=== PATIENT | female | born 1990 | race Caucasian/White ===

== ENCOUNTER 2020-08-06 15:52 | Outpatient (CLI) | payer OTHER, SELFPAY ==
--- NOTE | ~2020-08-06 | US_ITS ---
EXAMINATION: US abdomen complete EXAM DATE: 08/06/2020 16:36 INDICATION: Right upper quadrant pain, hepatomegaly. TECHNIQUE: Multiple grayscale and Doppler images of the complete abdomen were obtained (by a technolo gist who performed the scan) and subsequently reviewed. There is no prior study for comparison. FINDINGS: The abdominal aorta is normal in caliber. Visualized portion IVC is patent. The pancreatic head a nd body are normal in appearance. The pancreatic tail is not visualized. The liver has normal echogenicity and contour. Cystic centrally located liver lesion (caudate?) abut ting the IVC, could be spherical with nodule of echogenic material or soft tissue inside, or could be crescent-shaped. This measures 2.2 x 2.4 x 1.4 cm. There is no evidence of intrahepatic biliary duct dilation. Portal venous flow was seen in the hepatopedal, normal direction and has normal Doppler w aveform. Common bile duct measures 3 mm, which is normal. The gallbladder wall is normal in thickness, with ex pected amount of distention. No sonographic evidence of pericholecystic fluid. There is no cholelit hiases. Technologist performing exam reports patient did not demonstrate sonographic Caraballo's sign. Please note that this sign is less reliable in patients who have received pain medication. Right kidney: There is normal contour and echogenicity. It measures 9.1 x 5.4 x 4.0 centimeters. T here are no focal renal lesions identified. There is no hydronephrosis. Left kidney: There is normal contour and echogenicity. It measures 10.5 x 4.9 x 4.1 centimeters. T here are no focal renal lesions identified. There is no hydronephrosis. The spleen measures 12 centimeters and is morphologically normal. IMPRESSION: Nonspecific 2 cm liver cystic region with possible solid component. Indeterminate imaging features. Recommend abdomen MRI without and with contrast. Reviewed, dictated and finalized at location A. IMPRESSION: Nonspecific 2 cm liver cystic region with possible solid component. Indeterminate imaging features. Recommend abdomen MRI without and with contras t.
== END 2020-08-06 15:53 | disposition home or self-care (01) ==
PROVIDERS: PCP Nurse Practitioner Family; Visit Provider Nurse Practitioner Family
DX: R16.0 Hepatomegaly, not elsewhere classified (principal)
CPT/HCPCS: 76700

== ENCOUNTER → 2020-10-15 02:07 | Outpatient (CLI) | payer OTHER, SELFPAY ==
[2020-10-17 12:53] LABS: SARS-CoV-2 RNA PCR Negative
== END ==
PROVIDERS: PCP Nurse Practitioner Family; Visit Provider Internal Medicine Gastroenterology
DX: Z01.812 Encounter for preprocedural laboratory examination (principal); Z20.822 Contact with and (suspected) exposure to COVID-19
CPT/HCPCS: C9803; U0003; U0005

== ENCOUNTER 2020-10-18 01:37 | Day surgery (SDC) | payer OTHER, SELFPAY ==
[2020-10-08 14:19] VITALS: BMI 32.1
[2020-10-18 07:58] VITALS: BP 145/97; PULSE 64; RESP 20; TEMP 36.1; O2SAT 100
[2020-10-18] MEDS: LACTATED RINGERS 1,000 ML 150 ML IV CONT (08:08)
--- NOTE | 2020-10-18 08:49 | WPDANESEPPF ---
Anes - Initial Pre Proc Eval Procedure: Operation Date: 10/18/20 09:00 Proposed Procedures p Colonoscopy - Myles Bourgeois MD Date/Time: 10/18/20 08:49 Surgeon: Myles Bourgeois MD Pre Op Diagnosis: abdominal pain Patient Data Age: 30 Gender: F Height: 5 ft 1 in Weight: 76 kg Last Vital Signs Temp 97.0 F L 10/18/20 07:58 Pulse 64 10/18/20 07:58 Resp 20 10/18/20 07:58 BP 145/97 H 10/18/20 07:58 Pulse Ox 100 10/18/20 07:58 Allergies Allergy/AdvReac Type Severity Reaction Status Date / Time clavulanic acid Allergy Unknown Unknown Verified 10/18/20 07:52 Home Medications Medication Instructions Recorded Confirmed Type labetalol 200 mg tablet 200 mg PO TID tablet 09/18/20 10/08/20 History albuterol sulfate 2 puff INHALATION PRN PRN 10/08/20 10/08/20 History amlodipine 2.5 mg PO DAILY 10/08/20 10/08/20 History Patient hx anesthesia problems: none Family hx anesthesia problems: none [facility] Past Medical History Medical History (Updated 09/18/20 @ 13:27 by DELL WaddellC) HTN (hypertension) Liver cyst Obese abdomen Tobacco abuse Social History Social History (Updated 09/18/20 @ 09:58 by Dariana Gutierres CMA) Smoking packs per day: 0.25 Smoking cigarettes per day: 5.0 Years smoked: 5 Smoking pack-years: 1.25 Smoking status: Current some day smoker Tobacco type: cigarettes Additional smoking assessment comments: RARELY SMOKES , DOES VAPES DAILY Alcohol intake: never Substance use: never Substance use type: does not use Living arrangements: with family Gender identity (if verbalized by the patient): Female Spiritual care concerns: No Anes - Eval Final PreProcedure Day of Procedure 10/18/20 08:49 Patient weight: overweight Heart: regular rate and rhythm Lungs: clear to auscultation Airway: Mallampati scale class II Neurological: alert and oriented Last oral intake: >/= 8 hours ASA classification: II Emergent: no Anesthetic plan: proceed Anesthesia type and monitoring: general GIVS and standard monitoring Informed Consent: The patient's anesthetic plan and its attendant risks and benefits were discussed with the patient/family/POA. Questions were solicited and answers provided to the satisfaction of the patient/family/POA.
--- NOTE | 2020-10-18 08:57 | PM.HPGS ---
History of Present Illness History of Present Illness Consent: Risks, benefits, and alternatives have been discussed and questions answered. Patient agrees to proceed with procedure. Chief complaint: abdominal pain Narrative: Krystina Palmer is a 30 year old female Who has had a change in bowel habits. Besides having irregularity she also has abdominal pain. The pain is a transverse pain usually sharp across the waistline. It will also extended at times into the back > It may last for 5 minutes for up to an hour or 2. This began about 2 months ago. It occurs once or twice a day on the average Review of Systems Review of Systems: All systems reviewed & are unremarkable except as noted in HPI and below PMFSH Past Medical History Medical History HTN (hypertension) Liver cyst Obese abdomen Tobacco abuse Social History Social History Smoking packs per day: 0.25 Smoking cigarettes per day: 5.0 Years smoked: 5 Smoking pack-years: 1.25 Smoking status: Current some day smoker Tobacco type: cigarettes Additional smoking assessment comments: RARELY SMOKES , DOES VAPES DAILY Alcohol intake: never Substance use: never Substance use type: does not use Living arrangements: with family Gender identity (if verbalized by the patient): Female Spiritual care concerns: No Meds Home Medications and Allergies Home Medications Medication Instructions Recorded Confirmed Type labetalol 200 mg tablet 200 mg PO TID tablet 09/18/20 10/08/20 History albuterol sulfate 2 puff INHALATION PRN PRN 10/08/20 10/08/20 History amlodipine 2.5 mg PO DAILY 10/08/20 10/08/20 History Allergies Allergy/AdvReac Type Severity Reaction Status Date / Time clavulanic acid Allergy Unknown Unknown Verified 10/18/20 07:52 Vital Signs Vital Signs - 24 hr 10/18/20 07:58 Temperature 36.1 C L Pulse Rate 64 Respiratory Rate 20 Blood Pressure 145/97 H Pulse Oximetry 100 Exam Resp: Auscultation: clear to auscultation bilaterally Cardio: Rate: regular rate Rhythm: regular rhythm GI: GI Palp: Yes Soft to palpation and No Tenderness to palpation present (GI) Assessment and Plan Assessment and plan (1) Change in bowel habits: Code(s): R19.4 - Change in bowel habit Status: Acute Assessment and Plan: Colonoscopy with possible biopsy or polypectomy or cautery or injection of substances.
[2020-10-18 09:15] VITALS: BP 99/62; PULSE 64; RESP 15; O2SAT 99
[2020-10-18 09:25] VITALS: BP 104/71; PULSE 65; RESP 23; O2SAT 99
[2020-10-18 09:35] VITALS: BP 113/70; PULSE 63; RESP 15; O2SAT 99
== END 2020-10-18 09:55 | disposition home or self-care (01) ==
PROVIDERS: PCP Nurse Practitioner Family; Visit Provider Internal Medicine Gastroenterology
PROC: 0DJD8ZZ Inspection of Lower Intestinal Tract, Via Natural or Artificial Opening Endoscopic (ICD-10-PCS; CPT 45378; principal; 2020-10-18 09:00)
DX: R19.4 Change in bowel habit (principal); R10.9 Unspecified abdominal pain; K62.1 Rectal polyp; I10 Essential (primary) hypertension; K76.89 Other specified diseases of liver; F17.210 Nicotine dependence, cigarettes, uncomplicated
CPT/HCPCS: 45385; 88305; J2704; J7120

== ENCOUNTER 2020-11-08 10:18 | Outpatient (CLI) | payer OTHER, SELFPAY ==
--- NOTE | ~2020-11-08 | MR_ITS ---
EXAMINATION: MR abdomen wo/w con DATE: 11/08/2020 11:59 INDICATION: Liver cyst TECHNIQUE: Magnetic resonance imaging (MRI) of the abdomen was performed without and with 15 mL Multi muna intravenous contrast. Sequences included coronal T2-weighted SS-FSE, coronal and axial FS 2D-F IESTA, axial STIR FSE, axial T2-weighted SS-FSE, axial T2-weighted FS SS-FSE, axial diffusion-weighte d SE, axial dual-echo T1-weighted FSPGR, and axial and coronal T1-weighted LAVA. Postcontrast axial T 1-weighted LAVA images were obtained in a time course. Postcontrast coronal T1-weighted LAVA images w ere obtained. COMPARISON: Right upper quadrant ultrasound dated 08/06/2020 FINDINGS: Heart size is normal. No pericardial or pleural effusion. There is a 2.0 x 1.4 cm T2 hyperintense non enhancing cyst in the left hepatic lobe along the anterior margin of the inferior vena cava which cor responds in size and location to the lesion identified on prior ultrasound. There is some heterogenei ty to the high T2 signal likely representing some internal debris which could account for the nodular hypoechoic region within the lesion on the prior ultrasound. There is however no associated enhancem ent to suggest soft tissue component/neoplasm. Liver is otherwise normal. Gallbladder, spleen, pancre as, bilateral adrenal glands and kidneys are normal. Bowels are unremarkable with no obstruction. Rakesh dder, uterus and bilateral adnexa are unremarkable on the coronal images. No pathologically enlarged abdominal or pelvic lymphadenopathy. Metallic magnetic field artifact of indeterminate etiology cent ered in the region of the rectum and coccyx which obscures portions of the posterior inferior pelvis. IMPRESSION: 1. The lesion of concern corresponds to a 2.0 x 1.4 cm complex cyst in the left hepatic lobe with no enhancing soft tissue component to suggest neoplasm. Reviewed, dictated and finalized at location A.
[2020-11-08 11:24] LABS: Estimated Glomerular Filt Rate > 60
== END 2020-11-08 10:19 | disposition home or self-care (01) ==
PROVIDERS: PCP Nurse Practitioner Family; Visit Provider Nurse Practitioner Family
DX: K76.89 Other specified diseases of liver (principal)
CPT/HCPCS: 74183; A9577

== ENCOUNTER 2021-05-14 10:16 | Outpatient (CLI) | payer OTHER, SELFPAY ==
[2021-05-17 00:59] LABS: CA-125 31 U/mL (<35)
== END 2021-05-14 10:17 | disposition home or self-care (01) ==
LOC: ANHLAB 10:21
PROVIDERS: PCP Nurse Practitioner Family; Visit Provider Obstetrics & Gynecology
DX: N83.209 Unspecified ovarian cyst, unspecified side (principal)
CPT/HCPCS: 36415; 86304

== ENCOUNTER 2022-04-14 12:13 | Outpatient (CLI) | payer OTHER, SELFPAY ==
--- NOTE | 2022-04-14 | ECG_ITS ---
Measurements Intervals [place] Rate: 65 P: 31 MD: 168 QRS: 32 QRSD: 97 T: 27 QT: 397 QTc: 413 Interpretive Statements SINUS RHYTHM NONSPECIFIC T-WAVE ABNORMALITY- ANTERIOR LEADS BASELINE ARTIFACT- V4 BORDERLINE ECG NO PREVIOUS ECG AVAILABLE FOR COMPARISON Electronically Signed On 04-14-2022 13:11:19 ASSISTANT ART DIRECTOR by Lenard Alejo D.O.
[2022-04-14 12:59] LABS: Appearance Urine Clear (Clear); Bilirubin Urine Negative (Negative); Blood Urine Negative (Negative); Color Urine Yellow (Yellow); Glucose Urine UA Negative (Negative); Ketones Urine Negative (Negative); Leukocyte Esterase Ur 1+ LEU/UL (NEGATIVE); Nitrate Urine Negative (Negative); Protein Urine Negative (Negative); Urobilinogen Urine 0.2 mg/dL (<2.0); pH Urine 6.5 (5.0-9.0)
[2022-04-14 13:04] LABS: Creatinine Urine 135.7 mg/dL; Total Protein Urine Random 7 mg/dL; Ur Ttl Prot Creatinine Ratio 0.05 mg/mg (0-0.20)
[2022-04-14 13:13] LABS: Barbiturate Screen Urine Negative (Negative); Benzodiazepines Screen Urine Negative (Negative)
[2022-04-14 13:15] LABS: Amphetamine Screen Urine Negative (Negative); Cannabinoid Screen Urine Negative (Negative); Cocaine Screen Urine Negative (Negative); Methadone Screen Urine Negative (Negative); Opiate Screen Urine Negative (Negative); Phencyclidine Screen Urine Negative (Negative)
[2022-04-14 13:26] LABS: Bacteria Urine Trace /hpf; Mucus Urine Rare /lpf; Squamous Epithelial Cell Urine Few /hpf (Few)
[2022-04-14 13:39] LABS: Add Urine Microscopic? YES
[2022-04-14 14:18] LABS: Basophils Percent Auto 0.2 % (0.2-1.2); Eosinophils Absolute Auto 0.1 K/mm3 (0-0.3); Eosinophils Percent Auto 1.4 % (0-4.4); Hematocrit 34.3 % (37.0-47.0); Hemoglobin 11.7 g/dL (12.0-15.0); Immature Granulocyte Absolute 0.04 K/mm3 (0.00-0.031); Immature Granulocyte Percent A 0.5 % (0-0.5); Lymphocytes Absolute Auto 1.66 K/mm3 (0.9-3.2); Lymphocytes Percent Auto 18.7 % (18.3-44.2); Mean Corpuscular HGB Conc 34.1 g/dl (32-36); Mean Corpuscular Hemoglobin 29.8 pg (26-34); Mean Corpuscular Volume 87.3 fl (80-100); Mean Platelet Volume 10.9 fl (7.4-10.4); Monocytes Absolute Auto 0.5 K/mm3 (0.1-0.6); Monocytes Percent Auto 5.8 % (2.6-8.5); Neutrophils Absolute Auto 6.5 K/mm3 (1.3-6.7); Neutrophils Percent Auto 73.4 % (45.5-73.1); Platelet Count Result 200 k/mm3 (150-375); Red Blood Count 3.93 M/mm3 (4.2-5.4); Red Cell Distribution Width 12.5 % (11.5-14.5); White Blood Count 8.9 K/mm3 (4.5-10.0)
[2022-04-14 14:42] LABS: Alanine Aminotransferase 22 U/L (6-35); Albumin Level 4.3 g/dL (3.5-5.1); Alkaline Phosphatase 58 U/L (38-126); Anion Gap 9 mmol/L (8-16); Aspartate Amino Transferase 22 U/L (14-36); Bilirubin,Total 0.3 mg/dL (0.2-1.3); Blood Urea Nitrogen 10 mg/dL (7-17); Calcium 9.3 mg/dL (8.4-10.2); Carbon Dioxide 24 mmol/L (22-30); Chloride 105 mmol/L (98-107); Estimated Glomerular Filt Rate > 60; Glucose 99 mg/dL (65-110); Glucose 1 Hour PP 50gm Dose 99 mg/dL; Potassium 3.5 mmol/L (3.4-5.0); Sodium 138 mmol/L (137-145)
[2022-04-14 15:11] LABS: HIV 1/2 Ab P24 Ag Result Negative (Negative)
[2022-04-14 15:37] LABS: Rubella IgG Antibody 10.1 IU/ML
[2022-04-14 15:49] LABS: Hepatitis B Surface Anti Res Positive; Hepatitis C Virus Antibody Negative (Negative)
[2022-04-15 09:52] LABS: Hepatitis B Surface Antigen Negative (Negative)
[2022-04-15 14:47] LABS: Rapid Plasma Reagin Non-Reactive (NonReactive)
== END 2022-04-14 12:14 | disposition home or self-care (01) ==
LOC: ANHLAB 12:17
PROVIDERS: PCP Nurse Practitioner Family; Visit Provider Obstetrics & Gynecology Gynecologic Oncology
DX: O10.919 Unspecified pre-existing hypertension complicating pregnancy, unspecified trimester (principal); Z3A.00 Weeks of gestation of pregnancy not specified; R94.31 Abnormal electrocardiogram [ECG] [EKG]
CPT/HCPCS: 36415; 80053; 80307; 81001; 82570; 82947; 84156; 85025; 86592; 86703; 86706; 86762; 86803; 86850; 86880; 86900; 86901; 86902; 87086; 87340; 93005; G0432

== ENCOUNTER 2022-04-15 09:46 | Outpatient (CLI) | payer OTHER, SELFPAY ==
[2022-04-16 12:23] LABS: Total Protein Urine Random 7 mg/dL
[2022-04-16 12:42] LABS: Total Protein Urine 24 Hr 70 mg/24hr (28-141); Total Volume 24 Hour Urine 1000 ml
== END 2022-04-15 09:47 | disposition home or self-care (01) ==
LOC: ANHLAB 05-02 06:41
PROVIDERS: PCP Nurse Practitioner Family
DX: O10.919 Unspecified pre-existing hypertension complicating pregnancy, unspecified trimester (principal)
CPT/HCPCS: 81050; 84156

== ENCOUNTER 2024-10-12 13:40 | Emergency (ER) | payer OTHER, SELFPAY ==
[2024-10-12] VITALS (7 sets, daily range): BP systolic 163–196; BP diastolic 110–129; PULSE 56–70; RESP 14–18; TEMP 36.8–36.9; O2SAT 98–100
--- NOTE | ~2024-10-12 | XR_ITS ---
CHEST RADIOGRAPH, PA AND LATERAL CLINICAL HISTORY: lightheaded . COMPARISON: 02/09/2017 TECHNIQUE: PA and lateral views of the chest. FINDINGS The cardiomediastinal silhouette is unremarkable. The lungs are clear. IMPRESSION: No focal infiltrate or effusion. Reviewed, dictated and finalized at location A.
--- OUTSIDE RECORDS SUMMARY | 2024-10-12 13:47 | XMS_ITS | Clinical Summary ---
Author Organization [facility] [address] [facility] [address] Address [address] [place] [address] Care Team Providers Care Electronic Controls Repairer Supervisor Name Role Phone Lizandro Perry MD Primary Care Provider Allergies Active Allergy Reactions Criticality Noted Date Comments Amoxicillin-Pot Clavulanate Diarrhea High 03/23/20 15 Medications albuterol HFA (PROVENTIL HFA,VENTOLIN HFA,PROAIR HFA) 90 mcg/actuation inhaler INHALE 2 PUFFS INTO THE LUNGS EVERY 6 HOURS NEEDED FOR WHEEZE 2 Active fluticasone propionate (FLONASE) 50 mcg/actuation nasal spray Administer 2 sprays into each nostril daily 1 each 3 Active Additional Information Patient taking differently:2 spray each nostrilAs needed, Reported on 07/13/2023 labetaloL (NORMODYNE,TRAND ATE) 200 mg tabletIndication s:Essential hypertension Take 1 tablet (200 mg total) by mouth 2 (two) times a day 60 tablet 3 Active NIFEdipine CC 30 mg 24 hr tabletIndication s:Essential hypertension Take 1 tablet (30 mg total) by mouth daily 30 tablet 11 3 Active Additional Information Patient not taking.Reported on 07/13/2023 amLODIPine (NORVASC) 5 mg tablet Take 1 tablet (5 mg total) by mouth daily 30 tablet 5 11/10/19 25 Active Active Problems Problem Noted Date Diagnosed Date Migraine 10/10/2024 New daily persistent headache 10/10/2024 Blurred vision 10/10/2024 Cyst of left ovary 02/03/2024 Cyst of right ovary 02/03/2024 Generalized anxiety disorder 08/25/2023 Noncompliance with treatment 01/01/2023 Hypertension affecting , antepartum Hypertension 09/16/2022 Dizziness 06/23/2022 Overview (08/25/2022): Patient reports episodes of dizziness/feeling lightheaded at night. States her Bps have been normal during this time. Her primary OB recently collin a CBC, CMP and TSH that were all normal (reviewed during visit). Had follow up with cardiology and 24 hr holter that showed no arrhythmias and NSR during symptomatic events. TTE also normal (Mild MV, TV, PV regurgitation). 3/2- episodes decreased in frequency and severity. 4/3- episodes have continued to decrease in frequency and severity, have not interfered with activity Reviewed recommendations for regular snacking, good hydration and compression socks. Plan: - recommend good hydration and compression socks - fall precautions reviewed Asthma during 05/12/2022 Overview (08/25/2022): Previously counseled Current Regimen: Rare albuterol use Continue to monitor symptoms 4/3: reports increased use in setting of URI, denies wheezing, lungs clear to auscultation bilaterally Family history of ischemic h eart disease and other diseases of the circulatory system 05/12/2022 Marijuana use during 05/12/2022 Overview (06/19/2022): Previously counseled and encouraged cessation Chronic hypertension with superimposed preeclamp nate 05/07/2022 Overview (10/07/2022): Sees cardiology, records available in [facility]where. Has had a secondary HTN workup that was negative. 04/14 nml baseline HELLP labs, UPC: 0.05. Previously counseled Current regimen: 10/07/2022- Labetalol 200 BID. Plan to increase to 200 tid Was last admitted 09/26-09/29 at [facility] for headaches and worsening hypertension. Was diagnosed with superimposed preeclampsia with UPC 0.35. Severe features ruled out and plan was made for 37wk delivery at that time. -Given persistent headache today for now 2 days, recommended that she present to triage at [facility] (her planned delivery hospital). Would recommend delivery if headache fails to resolve. Spoke with Dr. Warren's nurse. Plan: [x] ASA at 12 weeks [x] Baseline labs (CBC, CMP, UPC) nmp, UP:C 0.05 [x] Secondary HTN work-up (if resistant to tx, dx < 30 years) [x] EKG/Echo (if dx>4 years or >30) - recommend weekly logs to [facility] for review, BP cuff validated - Serial growth ultrasound starting at 24 weeks - Twice weekly testing at 32 weeks, discussed 4/3 planning to do with primary Assessment & Plan (06/23/2022 10:53 AM SHIP RUNNER): BP log reviewed with mild range Bps. Encouraged compliance with labetalol 200 mg BID. BP parameters to hold and hypotension precautions reviewed. Strongly encouraged weekly logs to [facility] for review to ensure proper doses of meds. MFM RN to room to discuss weekly logs and review contact info. Rh negative state in antepartum period, third tr imester 05/07/2022 Overview (09/08/2022): [x] Rhogam at 28 weeks- received 08/29/22 (scanned under media) History of pre-eclampsia in prior , currently , first trimester 05/07/2022 Overview (06/19/2022): Germania states that it was unclear if she had pre-eclampsia in her last as they did not have a baseline urine protein. She has generally been treated as though she had pre-eclampsia. Previously counseled Plan: - Baseline PIH labs: WNL - Low dose ASA Supervision of high-risk , third trimes ter 05/07/2022 Overview (10/07/2022): [x] Co-management [x] Blue Team Referring Provider: Cristine Warren [phone] [] or Medicare Insurance [x] Dating Criteria: [place] 03/24/22 with KEIRA 11/09/21 [x] Labs: Rh [O-], Ab [positive, rhogam 03/04/22], Rubella [immune], HIV [negative], HepBSAg [negative], RPR [non-reactive], Hep C [negative], Varicella [not done], GC/CT [negative/negative] [] Genetic Screening: [x] CBC/Hgb 11.7/34.3/plt 200 [x] UCx: 04/14/22 no growth [x] Pap: 10/06/20 NILM [x] LD ASA (if indicated) starting at 12 weeks: [] EPDS [ ]; PNBHS referral (if indicated) 2nd Tri Labs: [x] Anatomy ultrasound: complete and wnl [] CBC/Ferritin/1hr gtt at 24-28wks:planning to obtain with primary OB [] Flu Shot (Jan-Apr): [x] Tdap (27-36wks): Obtained at primary OB [] COVID Vaccine: [x] Rhogam at 28 wks (if Rh neg): received 03/04/22, received 08/29/22 with primary (scanned under media) 3rd Tri Labs: [x] CBC/HIV/RPR: completed 09/28 [x] GBS: negative 09/17 [x] testing: scheduled with primary Counseling [] MOD: [x] Place of delivery: Planning to delivery with primary OB [] MOC: [] Method of feeding: [] Special Police Officer: [] PP Depression Discussed: Snoring 01/16/2022 Uncomplicated asthma 04/23/2021 Nontoxic goiter, unspecified 01/30/2021 History of Left atrial enlargement 12/31/2020 Overview (07/24/2022): Echocardiogram 02/10/2017 EF 70%, mild concentric LVH, hyperdynamic LV function, diastolic dysfunction, no regional wall motion abnormalities, moderate left atrial enlargement, mild AL- copy scanned into Media Echo 07/22/22: Left atrium is normal in size. Normal LV systolic function. No focal wall motion abnormalities. Normal LV size and wall thickness. Normal LV diastolic function. LVEF 63 %. Global Longitudinal Strain is normal. Essential hypertension 04/10/2017 Tobacco dependence syndrome 03/23/2015 Overview (05/12/2022): Patient quit smoking! She was congratulated. Herpes genitalis 04/30/2012 Resolved Problems Problem Noted Date Diagnosed Date Resolved Date Hypertension affecting pregn hossein in third trimester 09/26/2022 01/12/2023 33 weeks gestation of 07/28/2022 01/12/2023 Dietary counseling 10/09/2020 Breast feeding status of mother 11/30/2019 05/12/2022 Cyclical vomiting with nausea 07/03/2017 05/12/2022 Encounter for smoking cessation counseling 07/03/2017 05/12/2022 Lipid screening 07/03/2017 05/12/2022 Hypertensive urgency 04/10/2017 018 Abnormality of urination 03/23/2015 Overview (05/12/2022): per pt Chest pain 03/23/2015 05/12/2022 Headache 03/23/2015 05/12/2022 Plantar warts 12/28/2012 05/12/2022 Acquired talipes equinus 11/17/2012 Capsulitis 11/04/2012 05/12/2022 Encounters Date Type Department Care Team Description 10/10/2024 3:26 AM CDT - 10/10/2024 11:39 AM CDT Emergency [facility] [address] [place] [address] Jose C Morales MD Zanaboni, Allison Janine, MD Blurred vision (Primary Dx); Secondary hypertension Discharge Disposition: Discharge to home or self care 10/10/2024 Telephone [facility] Ophthalmology [address] [place] [phone] Ky Townsend MD 10/10/2024 Ophth Exam [facility] Ophthalmology [address] [place] [phone] Ky Townsend MD 10/10/2024 Telephone [facility] Ophthalmology [address] [place] [address] 1[address] [place] [phone] Ky Townsend MD from Last 3 Months Immunizations Immunization Administration Dates Next Due DTP 04/23/1993, 3,03/20/1992,01/09 DTaP 10/20/1996 DTaP, Unspecified 10/20/1996 H1N1 Inj 03/22/2009 HPV, Quadrivalent 06/30/2007,02/26/2007,12/22/19 07 HPV, Unspecified 06/30/2007,02/26/2007, 7 Hep B, Adolescent or Pediatric 02/21/1997,1996,09/15/1996 Hep B, Unspecified 02/21/1997,10/20/1996, 997 HiB 03/19/1993, 3,03/20/1992,01/09 Immune Globulin, IM 05/11/2018 Influenza, Quadrivalent, Spl it, Preservative Free, Intramuscular 04/30/2019 MMR 09/15/1996,03/19/1993 MMRV 09/15/1996,03/19/1993 Meningococcal ACWY, Unspecified 12/21/2006 Meningococcal C Conjugate 12/21/2006 OPV 09/15/1996, 3,03/20/1992,01/09 OPV, Unspecified 09/15/1996, 3,03/20/1992,01/09 Tdap 07/28/2019,12/21/2006 Surgical History Surgery Date Site/Laterality Comments DILATION AND CURETTAGE OF UTERUS TYMPANOSTOMY TUBE PLACEMENT Medical History Medical History Date Comments Hypertension Hypertensive urgency 04/10/2017 Pre-conception counseling 07/03/2017 Asthma Family History Medical History Relation Name Comments Heart disease Father Hypertension Father Hypertension Mother Relation Name Status Comments Father Alive Mother Alive Social History Tobacco Use Types Packs/Day Years Used Date Smoking Tobacco: Former Cigarettes Smokeless Tobacco: Never Tobacco Cessation:Counseling Given: Not Answered Alcohol Use Standard Drinks/Week Comments Yes 0 (1 standard drink = 0.6 oz pur e alcohol) rarely Social Connection and Isolat ion Panel [NHANES] Answer Date Recorded In a typical week, how many times do you talk on the phone with family, friends, or neighbors? More than three times a week 09/18/2022 How often do you get togethe r with friends or relatives? More than three times a week 09/18/2022 How often do you attend chur ch or orthodoxy services? Never 09/18/2022 Do you belong to any clubs o r organizations such as islam groups, unions, fraternal or athletic groups, or school groups? No 09/18/2022 How often do you attend meet ings of the clubs or organizations you belong to? Never 09/18/2022 Are you , , di vorced, , never , or living with a partner? 09/18/2022 AUDIT-C Answer Date Recorded Q1: How often do you have a drink containing alcohol? Never 09/17/2022 Q2: How many drinks containi ng alcohol do you have on a typical day when you are drinking? Patient does not drink Q3: How often do you have si x or more drinks on one occasion? Never 09/17/2022 Overall Financial Resource Strain (CARDIA) Answe r Date Recorded How hard is it for you to pa y for the very basics like food, housing, medical care, and heating? Not very hard 09/18/2022 Hunger Vital Sign Answer Date Recorded Within the past 12 months, y ou worried that your food would run out before you got the money to buy more. Never true 09/19/19 23 Within the past 12 months, t he food you bought just didn't last and you didn't have money to get more. Never true 09/18/2022 PRAPARE - Transportation Answer Date Re corded In the past 12 months, has l ack of transportation kept you from medical appointments or from getting medications? No 08/24 In the past 12 months, has l ack of transportation kept you from meetings, work, or from getting things needed for daily living? No 09/18/2022 Housing Stability Vital Sign Answer Brett e Recorded In the last 12 months, was t here a time when you were not able to pay the mortgage or rent on time? No 09/18/2022 In the last 12 months, how many places have you lived? 1 09/18/2022 In the last 12 months, was t here a time when you did not have a steady place to sleep or slept in a fpc (including now)? No 09/18/2022 Housing Stability Vital Sign Answer Brett e Recorded In the last 12 months, was t here a time when you were not able to pay the mortgage or rent on time? No 09/18/2022 Number of Times Moved in the Last Year Not on fi le 09/18/2022 Homeless in the Last Year Not on file 2022 Personal Safety Answer Date Recorded Have you ever been in or are you currently in a harmful physical or emotional relationship or is someone making you feel afraid or unsafe? Denies 10/10/2024 Comments Unknown Sex and Gender Information Value Date Recorded Sex Assigned at Not on file Legal Sex Female 12:28 PM CDT Gender Identity Not on file Sexual Orientation Not on file Obstetrics History Para Term AB IAB SAB Ectopic Multiple Livin g Live Births 4 1 1 2 1 1 1 1 Date Outcome GA Total Labor Labor/2nd/3rd Weight Sex Type Anes PTL Eden A1 A5 Name Clin 2016 SAB 7w0 d 2017 Ectopic 2019 Term 37w 3d 43h 50m 40h 47m/2h 56m/0h 07m 3.35 kg (7 lb 6.2 oz) M Vag-S pont Epidur al N Livin g 8 9 RENCH, BOY GERMANIA Ventura rd, MD Complications:None Delivery Location:[facility]) Last Filed Vital Signs Vital Sign Reading Time Taken Comments Blood Pressure 169/127 10/10/2024 10:25 AM CDT Pulse 65 10/10/2024 10:25 AM CDT Temperature 36.9 C (98.5 F) 10/10/2024 3:31 AM CDT Respiratory Rate 17 10/10/2024 10:25 AM CDT Oxygen Saturation 98% 10/10/2024 10:25 AM CDT Inhaled Oxygen Concentration - - Weight 79.4 kg (175 lb) 10/10/2024 3:31 AM CDT Height 154.9 cm (5' 1 ) 10/10/2024 3:31 AM CDT Body Mass Index 33.07 10/10/2024 3:31 AM CDT Plan of Treatment Health Maintenance Due Date Last Done Comments Cervical Cancer Screening 1991 Depression Screening 1991 Regular Well Visit/Exam 18-64 09/29/2009 Pneumococcal vaccine <65 (1 of 2 - PCV) 09/29/2010 Influenza Vaccine (Season Ended) 2025 04/30/20 19 DTaP/Tdap/Td Vaccine (8 - Td or Tdap) 07/27/2029 07/28/2019, 12/21/2006, 10/20/1996, Additional history exists Varicella Vaccines Completed 09/15/1996, 03/19/1993 Hepatitis B Screening Completed 02/21/1997 , 02/21/1997, 10/20/1996, Additional history exists HPV Vaccines Completed 06/30/2007, 10/2007, 02/26/2007, Additional history exists Hepatitis C Screening Completed 04/14/2022 Procedures Procedure Name Priority Date/Time Associated Diagnosis Comments TROPONIN I HIGH-SENSITIVITY 2-HOUR Timed 10/10/2024 6:32 AM CDT POCT RAPID HIV ANTIBODY COMMUNITY SCREENING-MANDI ELIGIBLE STAT 10/10/2024 6:23 AM CDT T4, FREE STAT 10/10/2024 4:16 AM CDT HEMOGLOBIN A1C STAT 10/10/2024 4:16 AM CDT EGFR STAT 10/10/2024 4:16 AM CDT DIFFERENTIAL AUTO STAT 10/10/2024 4:1 6 AM CDT CBC WITH AUTO DIFFERENTIAL STAT 10/10/2024 4:16 AM CDT TROPONIN I HIGH-SENSITIVITY SERIES (BASELINE, 2HR, 4HR, 6HR) STAT 10/10/2024 4:16 AM CDT TSH STAT 10/10/2024 4:16 AM CDT URINALYSIS AND REFLEX TO MICROSCOPIC STAT 10/10/2024 4:16 AM CDT COMPREHENSIVE METABOLIC PANEL STAT 10/10/2024 4:16 AM CDT POCT HCG, URINE Routine 10/10/2024 4:14 AM CDT ECG 12-LEAD Routine 10/10/2024 4:[address] OUTSIDE CONSULT Routine 10/10/2024 4:[address] OUTSIDE CONSULT Routine 10/10/2024 4:00 AM CDT HEPATITIS C ANTIBODY Routine 04/14/2022 from Last 3 Months or Most Recently Relevant to Health Maintenance Results * Troponin I high-sensitivity 2-hour (10/10/2024 6:32 AM CDT) Trop I hs <4 <=17 ng/L Comment: Interpretive Data For further hscTnI resources including the diagnostic algorithm and an aid in interpretation, copy and paste this link: [email or web address].testcatalog.org/show/[email or web address] Current Interpretive Data last revised 2019. Trop I hs delta 0 ng/L RAFAL CASTAÑEDA Trop I hs interp Insignificant [facility]ERNER [facility] Blood 10/10/2024 6:32 AM CDT 10/10/2024 6:47 AM CDT us Abbe Moncada MD LAB BLOOD ORDERABLES Final Res ult RAFAL CASTAÑEDA [facility] [place] [address] * POCT Rapid HIV Antibody Community Screening-Mandi Eligible (10/10/2024 6:23 AM CDT) Rapid HIV, POC Negative Negative Lot Number [id number] QC Control Line Acceptable Blood 10/10/2024 6:23 AM CDT us Jose C Morales MD POINT OF CARE TEST ORDERABLES Final Result * Troponin I high-sensitivity series (baseline, 2hr, 4hr, 6hr) (10/10/2024 4:16 AM CDT) Trop I hs <4 <=17 ng/L Comment: Interpretive Data For further hscTnI resources including the diagnostic algorithm and an aid in interpretation, copy and paste this link: https://bjhlab.testcatalog.org/show/hsTrop-[email or web address] Current Interpretive Data last revised 2019. Blood 10/10/2024 4:16 AM CDT 10/10/2024 4:27 AM CDT us Abbe Moncada MD LAB BLOOD ORDERABLES Final Res ult [facility] Department [place] [address] * eGFR (10/10/2024 4:16 AM CDT) eGFR 73 >=60 mL/min/1. 73 m2 Comment: Interpretive Data Reference Interval Normal >/= 90 mL/min/1.73m2 Mildly decreased* 60 - 89 mL/min/1.73m2 Mildly to moderately decreased 45 - 59 mL/min/1.73m2 Moderately to severely decreased 30 - 44 mL/min/1.73m2 Severely decreased 15 - 29 mL/min/1.73m2 Kidney Failure < 15 mL/min/1.73m2 *Relative to young adult level Estimated glomerular filtration rate is determined by the 2020 CKD-EPI equation recommended by the National Kidney Foundation (A Unifying Approach to GFR Estimation: Recommendations of the NKF-ASK Task Force on Reassessing the Inclusion of Race in Diagnosing Kidney Disease, JASN 2020). The CKD-EPI equation should not be used for patients with unstable renal function and has not been validated in children and those over 70. Current interpretive data was last reviewed 2021. Blood 10/10/2024 4:16 AM CDT 10/10/2024 4:27 AM CDT us Abbe Moncada MD LAB BLOOD ORDERABLES Final Res ult [facility] Department [place] [address] * Differential, auto (10/10/2024 4:16 AM CDT) Neutrophil abs 6.30 1.50 - 6.50 K/cumm Imm gran abs 0.03 0.00 - 0.10 K/cumm [facility] Lymphocyte abs 1.72 0.80 - 3.30 K/cumm [facility] Monocyte abs 0.38 0.20 - 0.80 K/cumm [facility] Eosinophil abs 0.06 0.00 - 0.50 K/cumm [facility] Basophil abs 0.02 0.00 - 0.10 K[facility]umm [facility] Neutrophil pct 74.0 % [facility] Comment: Interpretive Data Percent cell count reference ranges are not reported, since discordance with absolute values may lead to misinterpretation of CBC data. Current Interpretive Data was last revised on 2017. Imm gran pct 0.4 % [facility] Comment: Interpretive Data Percent cell count reference ranges are not reported, since discordance with absolute values may lead to misinterpretation of CBC data. Current Interpretive Data was last revised on 2017. Lymphocyte pct 20.2 % [facility] Comment: Interpretive Data Percent cell count reference ranges are not reported, since discordance with absolute values may lead to misinterpretation of CBC data. Current Interpretive Data was last revised on 2017. Monocyte pct 4.5 % [facility] Comment: Interpretive Data Percent cell count reference ranges are not reported, since discordance with absolute values may lead to misinterpretation of CBC data. Current Interpretive Data was last revised on 2017. Eosinophil pct 0.7 % [facility] Comment: Interpretive Data Percent cell count reference ranges are not reported, since discordance with absolute values may lead to misinterpretation of CBC data. Current Interpretive Data was last revised on 2017. Basophil pct 0.2 % [facility] Comment: Interpretive Data Percent cell count reference ranges are not reported, since discordance with absolute values may lead to misinterpretation of CBC data. Current Interpretive Data was last revised on 2017. Blood 10/10/2024 4:16 AM CDT 10/10/2024 4:27 AM CDT Abbe Moncada MD LAB BLOOD ORDERABLES Final Res ult [facility] Department [place] [address] * Urinalysis reflex to microscopic (10/10/2024 4:16 AM CDT) Color, ur Straw Yellow Clarity, ur Clear Clear [facility] Specific gravity, ur 1.013 1.003 - 1.030 [facility] pH, urine 7.0 [facility] Comment: Interpretive Data U rine pH is affected by diet, medications, systemic acid-base disturbances, and renal tubular function. pH may affect urinary stone formation. For example, urine pH below 6.0 may help reduce the tendency for calcium phosphate stones and pH greater than 6.0 may reduce the tendency for uric acid stone formation. Source: [facility] Current Interpretive Data was last revised on 2017 Protein, ur ql Negative Negative [facility] Glucose, ur ql Negative Negative [facility] Ketones, ur Negative Negative [facility] Bilirubin, ur Negative Negative [facility] Blood, ur Negative Negative [facility] Urobilinogen, ur <2.0 <2.0 mg/dL [facility] Nitrite, ur Negative Negative [facility] Leukocyte esterase, ur Negative Negative [facility] UA reflex comment Reflex conditions for microscopic UA not met. [facility] Urine 10/10/2024 4:16 AM CDT 10/10/2024 4:21 AM CDT Abbe Moncada MD LAB URINE ORDERABLES Final Res ult Performing Organization Address [facility] Co de Phone Number [facility] Department [place] [address] * (ABNORMAL) CBC with auto differential (10/10/2024 4:16 AM CDT) WBC 8.51 3.80 - 9.90 K/cumm Hgb 12.0 11.9 - 15.5 g/dL [facility] Hct 35.0(L) 35.6 - 45.5 % [facility] Plt 246 150 - 400 K/cumm [facility] MPV 11.3 9.1 - 12.3 fL [facility] RBC 4.23 3.90 - 5.20 M/cumm [facility] MCV 82.7 81.3 - 96.4 fL [facility] MCH 28.4 27.1 - 33.3 pg [facility] MCHC 34.3 32.3 - 35.7 g/dL [facility] RDW CV 13.1 11.1 - 14.9 % [facility] RDW SD 39.4 35.7 - 48.1 fL [facility] NRBC abs 0.00 0.00 - 0.01 K/cumm [facility] Blood 10/10/2024 4:16 AM CDT 10/10/2024 4:27 AM CDT us Abbe Moncada MD LAB BLOOD ORDERABLES Final Res ult Performing Organization Address City/[facility]/ZIP Co de Phone Number [facility] Department [place] [address] * (ABNORMAL) TSH (10/10/2024 4:16 AM CDT) Pathologist [facility] Thyroid Stimulating Hormone 16.20(H) 0.30 - 4.20 mcIUnit/mL Blood Venous blood specimen / Unknown 10/10/2024 4:16 AM CDT 10/10/2024 4:27 AM CDT us Abbas Ali Moncada MD LAB BLOOD ORDERABLES Final Res ult [facility] [place] [address] * T4, free (10/10/2024 4:16 AM CDT) Pathologist [facility] Free T4 1.57 0.90 - 1.70 ng/dL Blood 10/10/2024 4:16 AM CDT 10/10/2024 4:27 AM CDT Jose C Rodriguez MD LAB BLOOD ORDERABLES Final Result Performing Organization Address [facility] de Phone Number [facility] [place] [address] * Hemoglobin A1c (10/10/2024 4:16 AM CDT) [facility] Hgb A1C 4.9 4.0 - 5.6 % Estimated Average Glucose 94 mg/dL [facility] Comment: The ADA recommends reporting an estimated Average Glucose (eAG) with all Hemoglobin A1c results using the equation derived from a study of 507 normal and diabetic adults. Minority populations were underrepresented and children were not included. (Diabetes Care 2020; 43(S1): S66-S76). The eAG is not equivalent to a fasting glucose. Blood 10/10/2024 4:16 AM CDT 10/10/2024 4:32 AM CDT Jose C Rodriguez MD LAB BLOOD ORDERABLES Final Result Performing Organization Address [facility]/[place] [address] * Comprehensive metabolic panel (10/10/2024 4:16 AM CDT) [facility] Sodium 145 135 - 145 mmol/L Potassium, pl 4.3 3.3 - 4.9 mmol/L [facility] Chloride 108 97 - 110 mmol/L [facility] CO2 24 22 - 32 mmol/L [facility] Anion gap 13 2 - 15 mmol/L [facility] BUN 16 6 - 25 mg/dL [facility] Creatinine 1.04 0.60 - 1.10 mg/dL [facility] Glucose 103 70 - 199 mg/dL [facility] Comment: Interpretive Data Fasting glucose >/= 126 mg/dl is diagnostic for diabetes. Fasting is defined as no caloric intake for at least 8 hours. Fasting glucose between 100 mg/dl to 125 mg/dl is diagnostic of prediabetes. In a patient with classic symptoms of hyperglycemia or hyperglycemic crisis, a random glucose >/= 200 mg/dl is diagnostic for diabetes. In the absence of unequivocal hyperglycemia, results should be confirmed by repeat testing. The classification and Diagnosis of Diabetes Diabetes Care 202; 46: S19-S40. Current interpretive data was last revised 2022. Calcium 9.9 8.5 - 10.3 mg/dL [facility] Bilirubin, total 0.3 0.1 - 1.2 mg/dL [facility] Protein, pl 8.0 6.5 - 8.5 g/dL [facility] Albumin 4.8 3.5 - 5.0 g/dL [facility] Alk phos 86 40 - 130 Units/L [facility] ALT 10 7 - 45 Units/L [facility] AST 25 10 - 45 Units/L [facility] Blood Venous blood specimen / Unknown 10/10/2024 4:16 AM CDT 10/10/2024 4:27 AM CDT us Abbe Moncada MD LAB BLOOD ORDERABLES Final Res ult [facility] [place] [address] * POCT hCG, urine (10/10/2024 4:14 AM CDT) HCG, ur, POC Negative Negative Lot Number [id number] QC Backgroud Clear Acceptable QC Control Line Acceptable Urine 10/10/2024 4:14 AM CDT Result [facility] Abbe Moncada MD POINT OF CARE TEST ORDERABLES Final Result * ECG 12-LEAD (10/10/2024 4:06 AM CDT) Narrative [facility] - 10/10/2024 4:06 AM CDT Jose C Morales MD 10/10/2024 4:07 AM ECG 12 lead Date/Time: 10/10/2024 4:06 AM Performed by: Jose C Morales MD Authorized by: Abbe Gan MD Rate: ECG rate assessment comment: 55, sinus bradycardia, normal axis, twi and st depression in III and aVF, V3-V4. t wave flattening in V6. Abbe Moncada MD ECG ORDERABLES Final Result [facility] * Neuro CT Outside Consult (10/10/2024 4:04 AM CDT) Anatomical Region Laterality Modality N/A Computed Tomogra phy 10/10/2024 4:10 AM CDT Impressions 10/10/2024 2:08 PM CDT 1. No acute intracranial process. 2. No high-grade stenosis of the head neck large arteries. No vascular malformation, aneurysm, or filling defect. The findings, conclusions and recommendations within this report do not replace the initial findings, conclusions and recommendations made at the facility where the study was performed based upon the imaging and clinical condition at that time. Comparison with the prior report and clinical history is necessary. The provided images may or may not represent the quechan source data set and thus may contain changes that may lower the accuracy of this second-opinion interpretation. Dictated by: Davy Cintron MD The radiology attending physician has personally reviewed this study, and had reviewed and/or edited this written report and agrees with it. Electronically signed by: Fausto Nuno MD, PHD Narrative 10/10/2024 2:08 PM CDT EXAMINATION: RADIOLOGY CONSULTATION ON OUTSIDE IMAGING STUDY STUDY INITIALLY PERFORMED: 10-09-24 at [facility]. TYPE OF STUDY: Multiple CTA images of the head and neck with contrast and CT head without contrast are provided at the time of this interpretation. CONTRAST ROUTE: Contrast was administered via the intravenous route. The protocol was adequate to address the clinical question. The outside final report was available at the time of this second opinion interpretation. TYPE OF CONSULTATION: Consult on outside imaging study with images submitted through Outside Image Sharing Service DATE OF CONSULTATION: 10/10/2024 4:04 AM HISTORY: Right greater than left blurred vision COMPARISON: None Available. FINDINGS: HEAD: There is no acute intracranial hemorrhage. Ventricles are of normal size and morphology. No mass effect or midline shift is present. The martinez-white matter differentiation is normal. The visualized portions of the orbits are normal. The visualized portions of the mastoids are normal. Left greater than right maxillary mucosal retention cyst. No fractures are identified. NECK: Scattered subcentimeter lymph nodes are seen in the neck. None are pathologically enlarged. The muscles of the neck are normal. Fascial planes are preserved and the deep spaces of the neck are normal. The visualized airway is widely patent. The base of the skull and the temporal bones are normal. Limited views of the brain including the cerebellum and brainstem are normal. The visualized portions of the orbits are normal. The spinal canal is normal in caliber. Intervertebral disk heights are normal. Neural foramina are normal. Limited examination of the superior thorax shows no pulmonary infiltrate, suspicious nodules, or pleural effusions. CTA: The visualized aortic arch appears normal with normal configuration of the great vessels. The innominate artery and both subclavian arteries are normal in course and caliber. The common carotid arteries are normal in course and caliber with normal carotid bifurcations bilaterally, though appear tortuous. The course and caliber of the internal carotid arteries in the neck are normal. No areas of atherosclerotic narrowing or filling defects are identified. The visualized course and caliber of the internal carotid arteries in the head are normal. No areas of atherosclerotic narrowing or filling defects are identified. The [id number]-[id number] is complete. The anterior and middle cerebral arteries are normal. The vertebral arteries are codominant. The basilar artery is normal. The posterior cerebral arteries are normal. There is no aneurysm or vascular malformation identified. Procedure Note Fausto Nuno MD PhD - 10/10/2024 EXAMINATION: RADIOLOGY CONSULTATION ON OUTSIDE IMAGING STUDY STUDY INITIALLY PERFORMED: 10-09-24 at [facility]. TYPE OF STUDY: Multiple CTA images of the head and neck with contrast and CT head without contrast are provided at the time of this interpretation. CONTRAST ROUTE: Contrast was administered via the intravenous route. The protocol was adequate to address the clinical question. The outside final report was available at the time of this second opinion interpretation. TYPE OF CONSULTATION: Consult on outside imaging study with images submitted through Outside Image Sharing Service DATE OF CONSULTATION: 10/10/2024 4:04 AM HISTORY: Right greater than left blurred vision COMPARISON: None Available. FINDINGS: HEAD: There is no acute intracranial hemorrhage. Ventricles are of normal size and morphology. No mass effect or midline shift is present. The martinez-white matter differentiation is normal. The visualized portions of the orbits are normal. The visualized portions of the mastoids are normal. Left greater than right maxillary mucosal retention cyst. No fractures are identified. NECK: Scattered subcentimeter lymph nodes are seen in the neck. None are pathologically enlarged. The muscles of the neck are normal. Fascial planes are preserved and the deep spaces of the neck are normal. The visualized airway is widely patent. The base of the skull and the temporal bones are normal. Limited views of the brain including the cerebellum and brainstem are normal. The visualized portions of the orbits are normal. The spinal canal is normal in caliber. Intervertebral disk heights are normal. Neural foramina are normal. Limited examination of the superior thorax shows no pulmonary infiltrate, suspicious nodules, or pleural effusions. CTA: The visualized aortic arch appears normal with normal configuration of the great vessels. The innominate artery and both subclavian arteries are normal in course and caliber. The common carotid arteries are normal in course and caliber with normal carotid bifurcations bilaterally, though appear tortuous. The course and caliber of the internal carotid arteries in the neck are normal. No areas of atherosclerotic narrowing or filling defects are identified. The visualized course and caliber of the internal carotid arteries in the head are normal. No areas of atherosclerotic narrowing or filling defects are identified. The [id number] is complete. The anterior and middle cerebral arteries are normal. The vertebral arteries are codominant. The basilar artery is normal. The posterior cerebral arteries are normal. There is no aneurysm or vascular malformation identified. IMPRESSION: 1. No acute intracranial process. 2. No high-grade stenosis of the head neck large arteries. No vascular malformation, aneurysm, or filling defect. The findings, conclusions and recommendations within this report do not replace the initial findings, conclusions and recommendations made at the facility where the study was performed based upon the imaging and clinical condition at that time. Comparison with the prior report and clinical history is necessary. The provided images may or may not represent the quechan source data set and thus may contain changes that may lower the accuracy of this second-opinion interpretation. Dictated by: Davy Cintron MD The radiology attending physician has personally reviewed this study, and had reviewed and/or edited this written report and agrees with it. Electronically signed by: Fausto Nuno MD, PHD Abbe Moncada MD IMG CT PROCEDURES Final Result * Neuro CT Outside Consult (10/10/2024 4:00 AM CDT) Anatomical Region Laterality Modality N/A Computed Tomogra phy 10/10/2024 4:10 AM CDT Impressions 10/10/2024 2:08 PM CDT 1. No acute intracranial process. 2. No high-grade stenosis of the head neck large arteries. No vascular malformation, aneurysm, or filling defect. The findings, conclusions and recommendations within this report do not replace the initial findings, conclusions and recommendations made at the facility where the study was performed based upon the imaging and clinical condition at that time. Comparison with the prior report and clinical history is necessary. The provided images may or may not represent the quechan source data set and thus may contain changes that may lower the accuracy of this second-opinion interpretation. Dictated by: Davy Cintron MD The radiology attending physician has personally reviewed this study, and had reviewed and/or edited this written report and agrees with it. Electronically signed by: Fausto Nuno MD, PHD Narrative 10/10/2024 2:08 PM CDT EXAMINATION: RADIOLOGY CONSULTATION ON OUTSIDE IMAGING STUDY STUDY INITIALLY PERFORMED: 10-09-24 at [facility]. TYPE OF STUDY: Multiple CTA images of the head and neck with contrast and CT head without contrast are provided at the time of this interpretation. CONTRAST ROUTE: Contrast was administered via the intravenous route. The protocol was adequate to address the clinical question. The outside final report was available at the time of this second opinion interpretation. TYPE OF CONSULTATION: Consult on outside imaging study with images submitted through Outside Image Sharing Service DATE OF CONSULTATION: 10/10/2024 4:04 AM HISTORY: Right greater than left blurred vision COMPARISON: None Available. FINDINGS: HEAD: There is no acute intracranial hemorrhage. Ventricles are of normal size and morphology. No mass effect or midline shift is present. The martinez-white matter differentiation is normal. The visualized portions of the orbits are normal. The visualized portions of the mastoids are normal. Left greater than right maxillary mucosal retention cyst. No fractures are identified. NECK: Scattered subcentimeter lymph nodes are seen in the neck. None are pathologically enlarged. The muscles of the neck are normal. Fascial planes are preserved and the deep spaces of the neck are normal. The visualized airway is widely patent. The base of the skull and the temporal bones are normal. Limited views of the brain including the cerebellum and brainstem are normal. The visualized portions of the orbits are normal. The spinal canal is normal in caliber. Intervertebral disk heights are normal. Neural foramina are normal. Limited examination of the superior thorax shows no pulmonary infiltrate, suspicious nodules, or pleural effusions. CTA: The visualized aortic arch appears normal with normal configuration of the great vessels. The innominate artery and both subclavian arteries are normal in course and caliber. The common carotid arteries are normal in course and caliber with normal carotid bifurcations bilaterally, though appear tortuous. The course and caliber of the internal carotid arteries in the neck are normal. No areas of atherosclerotic narrowing or filling defects are identified. The visualized course and caliber of the internal carotid arteries in the head are normal. No areas of atherosclerotic narrowing or filling defects are identified. The [id number] is complete. The anterior and middle cerebral arteries are normal. The vertebral arteries are codominant. The basilar artery is normal. The posterior cerebral arteries are normal. There is no aneurysm or vascular malformation identified. Procedure Note Fausto Nuno MD PhD - 10/10/2024 EXAMINATION: RADIOLOGY CONSULTATION ON OUTSIDE IMAGING STUDY STUDY INITIALLY PERFORMED: 10-09-24 at [facility]. TYPE OF STUDY: Multiple CTA images of the head and neck with contrast and CT head without contrast are provided at the time of this interpretation. CONTRAST ROUTE: Contrast was administered via the intravenous route. The protocol was adequate to address the clinical question. The outside final report was available at the time of this second opinion interpretation. TYPE OF CONSULTATION: Consult on outside imaging study with images submitted through Outside Image Sharing Service DATE OF CONSULTATION: 10/10/2024 4:04 AM HISTORY: Right greater than left blurred vision COMPARISON: None Available. FINDINGS: HEAD: There is no acute intracranial hemorrhage. Ventricles are of normal size and morphology. No mass effect or midline shift is present. The martinez-white matter differentiation is normal. The visualized portions of the orbits are normal. The visualized portions of the mastoids are normal. Left greater than right maxillary mucosal retention cyst. No fractures are identified. NECK: Scattered subcentimeter lymph nodes are seen in the neck. None are pathologically enlarged. The muscles of the neck are normal. Fascial planes are preserved and the deep spaces of the neck are normal. The visualized airway is widely patent. The base of the skull and the temporal bones are normal. Limited views of the brain including the cerebellum and brainstem are normal. The visualized portions of the orbits are normal. The spinal canal is normal in caliber. Intervertebral disk heights are normal. Neural foramina are normal. Limited examination of the superior thorax shows no pulmonary infiltrate, suspicious nodules, or pleural effusions. CTA: The visualized aortic arch appears normal with normal configuration of the great vessels. The innominate artery and both subclavian arteries are normal in course and caliber. The common carotid arteries are normal in course and caliber with normal carotid bifurcations bilaterally, though appear tortuous. The course and caliber of the internal carotid arteries in the neck are normal. No areas of atherosclerotic narrowing or filling defects are identified. The visualized course and caliber of the internal carotid arteries in the head are normal. No areas of atherosclerotic narrowing or filling defects are identified. The [id number] is complete. The anterior and middle cerebral arteries are normal. The vertebral arteries are codominant. The basilar artery is normal. The posterior cerebral arteries are normal. There is no aneurysm or vascular malformation identified. IMPRESSION: 1. No acute intracranial process. 2. No high-grade stenosis of the head neck large arteries. No vascular malformation, aneurysm, or filling defect. The findings, conclusions and recommendations within this report do not replace the initial findings, conclusions and recommendations made at the facility where the study was performed based upon the imaging and clinical condition at that time. Comparison with the prior report and clinical history is necessary. The provided images may or may not represent the quechan source data set and thus may contain changes that may lower the accuracy of this second-opinion interpretation. Dictated by: Davy Cintron MD The radiology attending physician has personally reviewed this study, and had reviewed and/or edited this written report and agrees with it. Electronically signed by: Fausto Nuno MD, PHD us Abbe Moncada MD IMG CT PROCEDURES Final Result * Hepatitis C antibody (04/14/2022) SCRIBED HCV ab negative Blood us Cristine Warren MD LAB MICROBIOLOGY - GENERAL ORDERABLES Final Result from Last 3 Months or Most Recently Relevant to Health Maintenance Insurance 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
--- OUTSIDE RECORDS SUMMARY | 2024-10-12 13:47 | XMS_ITS | Clinical Summary ---
Author Organization [facility] Address [address] [place] [address] Care Team Providers Care Water Softener Servicer Name Role Phone Unavailable Primary Care Provider Unavailabl e Source Comments [facility],non-owned Affiliates and Associated Physician Practices is amultiple site organization consisting of ambulatory clinics and hospital sitesin [place], [place], [place] and [place]. This disclosure is being madepursuant to the Care Everywhere program and may not contain all information available regarding this patient. Last updated 18.[facility] Allergies Active Allergy Reactions Criticality Noted Date Comments Amoxicillin-Pot Clavulanate Diarrhea 06/20/19 20 Medications * This document contains information received from the source organization and may not represent a complete record from that organization. * Be aware that medications may not be up to date on this document. Alwaysverify current medications with the patient. labetalol (NORMODYNE; TRANDATE) 200 MG tabletIndicati ons:Hypertensi on Take 200 mg by mouth 3 times daily Reasons: High Blood Pressure Disorder Active Vit-Fe Fumarate-FA ( VITAMIN WITH IRON) tabletIndicati ons: Take 1 tablet by mouth once daily Reasons: Active albuterol HFA (PROVENTIL;ZULY TOLIN;PROAIR) 108 (90 Base) MCG/ACT inhalerIndicat ions:Asthma Inhale 2 puffs by mouth every 6 hours as needed Reasons: Asthma Active aspirin EC (ECOTRIN) 81 MG tablet Take 81 mg by mouth once daily Active ferrous sulfate 325 (65 FE) MG tabletIndicati ons:Low iron Take 1 tablet by mouth once daily 100 tablet 0 Active butalbital-foster taminophen-caf feine (FIORICET) 50-325-40 MG tablet Take 1 tablet by mouth every 4 hours as needed for Headache Do not exceed 3 grams of acetaminophen (TYLENOL) daily. 12 tablet 0 Active Active Problems Problem Noted Date Diagnosed Date Benign essential hypertension, antepartum 2019 Overview (06/20/2019): O- Neg/Im /RPR-NEG/ Hsbag-NEG/ HIV-NEG Declined NIPT/Quad Assessment & Plan (08/24/2019 11:15 AM CDT): Normotensive based on last evening's assessment at home; asymptomatic for preeclampsia. 03/2019: creatinine: 0.99 24 hour urine: with mild macroproteinuria, 350 mg 05/2019 Patient coming in later today for testing at [facility]. Accelerated growth noted 08/15; patient reports passing GTT. Maternal Medicine recommendations: 1. Changes in serum laboratory tests or persistent severe features of preeclampsia are more objective criteria to make the diagnosis of superimposed preeclampsia, verses mild changes in blood pressure or proteinuria. 2. Daily home blood pressure monitoring with review measurements at visits. 3. Goal blood pressures <155/95; continue weekly CBC and CMP. 4. Report to primary OB with concern for elevated blood pressure or preeclampsia symptoms. 5. Serial growth completed. 6. Encouraged twice daily kick counts; instructed to go to L/D with reduced movement. 7. Continue weekly 10 point biophysical profile; add 2nd NST for preeclampsia diagnosis. 8. Would expect patient's anti-hypertensive medication needs to increase in the 3rd trimester, especially with her history of chronic hypertension being challenging to control prior to . 9. Timing of delivery recommendations: 1. for uncomplicated chronic hypertension, delivery initiation at 39 weeks 2. for poorly controlled chronic hypertension or superimposed preeclampsia delivery initiation at 37 week delivery; unless earlier delivery is indicated by severe features of preeclampsia. 3. At this time we support a 38 week delivery given her hypertension has had episodes of severe values without superimposed preeclampsia, but has responded to increased labetalol regimen. 4. If she has one more episode of severe range blood pressure this week, would encourage delivery to be initiated at that time. Assessment & Plan (08/03/2019 10:08 AM CDT): Normotensive in office today, with trace urine protein, asymptomatic for preeclampsia. 03/2019: creatinine: 0.99 24 hour urine: with mild macroproteinuria, 350 mg 05/2019 CBC 07/31/19: H/H/P: 10.6/33.6/5/199 CMP 07/31/19: AST: 18, ALT: 29, creatinine: 0.69, BUN: 11 Reassuring testing today. AGA growth identified 07/15. Maternal Medicine recommendations: 1. Changes in serum laboratory tests or persistent severe features of preeclampsia are more objective criteria to make the diagnosis of superimposed preeclampsia, verses mild changes in blood pressure or proteinuria. 2. Daily home blood pressure monitoring with review measurements at visits 3. Goal blood pressures <155/95; continue weekly CBC and CMP as recommended by primary OB. Report to primary OB with concern for elevated blood pressure. 4. Serial growth every four weeks 5. Encouraged twice daily kick counts 6. Continue weekly 10 point biophysical profile starting at 32 weeks; add second NST if preeclampsia is diagnosed. 7. Would expect patient's anti-hypertensive medication needs to increase in the 3rd trimester, especially with her history of chronic hypertension being challenging to control prior to . 8. Timing of delivery recommendations: 1. for uncomplicated chronic hypertension, delivery initiation at 39 weeks 2. for poorly controlled chronic hypertension or superimposed preeclampsia delivery initiation at 37 week delivery; unless earlier delivery is indicated by severe features of preeclampsia. 3. At this time we support a 38 week delivery given her hypertension has had episodes of severe values without superimposed preeclampsia, but has responded to increased labetalol regimen. 9. Would benefit from and weight reduction Assessment & Plan (07/20/2019 6:45 PM [employer]): Patient with complaints today of persistent headache not relieved with Tyelnol ES 2 tabs. Worsening scotomata. She also has complaint of dizziness and lightheadedness that led to nausea and vomiting today. She complains of intermittent RUQ pain, but states it often resolves quickly. Denies association with food. 03/2019: creatinine: 0.99 24 hour urine: with mild macroproteinuria, 350 mg 05/2019 CBC 07/18/19: H/H/P: 10.1/31/5/211 CMP 07/18/19: AST: 19, ALT: 27, creatinine: 0.8, BUN: 10 Reassuring testing today. AGA growth identified 07/15. Maternal Medicine recommendations: 1. Changes in serum laboratory tests or persistent severe features of preeclampsia are more objective criteria to make the diagnosis of superimposed preeclampsia, verses mild changes in blood pressure or proteinuria. 2. Sent to [facility] triage for evaluation for persistent headache/scotomata, and treatment of headache, repeat lab evaluation. 3. Daily home blood pressure monitoring with review measurements at visits 4. Goal blood pressures <155/95; continue weekly CBC and CMP as recommended by primary OB. 5. Serial growth every four weeks 6. Daily kick count starting at 28 weeks 7. Weekly 10 point biophysical profile starting at 32 weeks; add second NST if preeclampsia is diagnosed 8. timing of delivery recommendations: 1. for uncomplicated chronic hypertension, delivery initiation at 39 weeks 2. for poorly controlled chronic hypertension or superimposed preeclampsia delivery initiation at 37 week delivery 1. unless earlier delivery is indicated by severe features of preeclampsia 9. Would benefit from and weight reduction Assessment & Plan (06/22/2019 6:32 PM [employer]): Prior to had serum creatinine greater than one on at least two occasions. Generally required two antihypertensive medications outside of --one of which used to be hydrochlorothiazide. No baseline urine protein assessment performed prior to 20 weeks. Recent 24 hr urine with mild macro proteinuria. Without a baseline assessment one cannot be confident of whether or not macro proteinuria was present early in the . Due to the length of duration of chronic hypertension and the previous serum creatinine values, it is quite likely that mild macro proteinuria was already present. We discussed the physiologic changes of blood pressure in women with chronic hypertension. Often there is improvement of blood pressure in the mid trimester, followed by a gradual return to pre values in the 3rd trimester. Chronic hypertension is associated with a 20-25% risk for superimposed preeclampsia. Low dose aspirin has a small-moderate benefit in the prevention of preeclampsia in at risk women; however, this medication has not been instituted and it may be too late to achieve the therapeutic affect. The targets of therapy with chronic hypertension are typically <160 mm Hg systolic and 90-105 mm Hg diastolic. Consistent blood pressures above 150/95 would be an indication to initiate antihypertensive medication. Aggressive normalization of blood pressure does not have benefit otherwise; it may have an undesirable impact on outcome. Aggressive treatment of hypertension does not reduce the risk for superimposed preeclampsia. I reviewed the blood pressure value today and Krystina's complaint of intermittent dizziness. I perceive her blood pressure to be too normal and recommended that she decrease her current dose of labetalol. Chronic hypertension is associated with an elevated risk of growth disturbance. It provides an indication for periodic assessments of the growth throughout . A reasonably aggressive approach is an ultrasound for growth at 28 weeks gestation with subsequent assessments at 4-6 week intervals thereafter (NIH, 2000). for Chronic hypertension is associated with an elevated risk for morbidity and mortality. It provides an indication for formal antepartum surveillance. Such surveillance is typically initiated at 32 weeks gestation. movement monitoring is an adjunct form of surveillance. The diagnosis of superimposed preeclampsia versus chronic hypertension flares is difficult to make. There is definitely the potential to overdiagnose preeclampsia. Changes in serum laboratory tests or persistent severe features of preeclampsia are more objective criteria to make the diagnosis of superimposed preeclampsia than mild changes in blood pressure or proteinuria. Maternal Medicine recommendations 1. Outside of the window for aspirin prophylaxis 2. Daily home blood pressure monitoring with review measurements at visits 3. Goal blood pressures <160/100 4. Serial growth every four weeks 5. Daily kick count starting at 28 weeks 6. Weekly 10 point biophysical profile starting at 32 weeks 7. Delivery initiation at 39 weeks 8. Would benefit from and weight reduction Family History Medical History Relation Name Comments Hypertension Father Hypertension Mother Pt mother adopted Relation Name Status Comments Father Mother Pt mother adopted Alive Social History Tobacco Use Types Packs/Day Years Used Date Smoking Tobacco: Former Cigarettes Q uit: 01/23/2019 Smokeless Tobacco: Never Tobacco Cessation:Counseling Given: Yes Alcohol Use Standard Drinks/Week Comments Not Currently 0 (1 standard drink = 0.6 oz pur e alcohol) Comments No Sex and Gender Information Value Date Recorded Sex Assigned at Not on file Legal Sex Female 8:37 AM [employer] Gender Identity Not on file Sexual Orientation Not on file Last Filed Vital Signs Vital Sign Reading Time Taken Comments Blood Pressure 118/76 08/16/2019 11:07 AM CDT Pulse 89 08/16/2019 11:07 AM CDT Temperature 36.6 C (97.9 F) 08/16/2019 11:07 AM CDT Respiratory Rate 16 07/20/2019 7:17 PM [employer] Oxygen Saturation - - Inhaled Oxygen Concentration - - Weight 92.9 kg (204 lb 12.8 oz) 08/03/2019 7:51 AM CDT Height 170.2 cm (5' 7 ) 07/20/2019 4:00 PM [employer] Body Mass Index 32.08 07/20/2019 4:00 PM [employer] Plan of Treatment Health Maintenance Due Date Last Done Comments HEPATITIS C SCREENING 09/25/2009 DTAP/TDAP/TD VACCINES (1 - Tdap) 09/29/2010 HEPATITIS B VACCINE (1 of 3 - 19+ 3-dose series) 09/29/2010 COVID-19 VACCINE ( - 2023-2 5 season) 2024 DEPRESSION SCREENING 05/25/2024 INFLUENZA VACCINE (Season Ended) 2025 04/30/2019, 03/22/2009 ZOSTER VACCINE (1 of 2) 09/29/2041 HIV SCREENING Completed 06/23/2019 HIB VACCINE Aged Out No longer eligi ble based on patient's age to complete this topic HPV VACCINE Aged Out No longer eligi ble based on patient's age to complete this topic MENINGOCOCCAL (Group B) VACCINE SHARED DECISION-MAKING Aged Out No longer eligible based on patient's age to complete this topic MENINGOCOCCAL GROUPS A/C/Y/W VACCINE Aged Out No longer eligible b ased on patient's age to complete this topic PNEUMOCOCCAL VACCINE Aged Out No long er eligible based on patient's age to complete this topic Insurance [facility] PLAN [facility] Advance Directives * Full Code (Latest Code Status on File) Date Activated Date Inactivated Comments 07/20/2019 4:06 PM 07/20/2019 9:30 PM
--- OUTSIDE RECORDS SUMMARY | 2024-10-12 13:47 | XMS_ITS | Referral Summary ---
Author Organization [facility] [address] [facility] [address] Address [address] [place] [address] Care Team Providers Care Dental Assistant Teacher Name Role Phone Lizandro Perry MD Primary Care Provider Encounters Date Type Department Care Team Description 10/10/2024 Telephone [facility] Ophthalmology [address] [place] [phone] Ky Townsend MD 10/10/2024 Ophth Exam [facility] Ophthalmology [address] [place] [phone] Ky Townsend MD 10/10/2024 3:26 AM CDT - 10/10/2024 11:39 AM CDT Emergency [facility] Emergency Department [address] [place] [id number] Jose C Morales MD Zanaboni, Allison Janine, MD Blurred vision (Primary Dx); Secondary hypertension Discharge Disposition: Discharge to home or self care 10/10/2024 Telephone [facility] Ophthalmology [address] [place] [phone] Ky Townsend MD from Last 3 Months Allergies Active Allergy Reactions Criticality Noted Date [...] recommended that she present to triage at [facility] (her planned delivery hospital). Would recommend delivery if headache fails to resolve. Spoke with Dr. Warren's nurse. Plan: [x] ASA at 12 weeks [x] Baseline labs (CBC, CMP, UPC) nmp, UP:C 0.05 [x] Secondary HTN work-up (if resistant to tx, dx < 30 years) [x] EKG/Echo (if dx>4 years or >30) - recommend weekly logs to [facility] for review, BP cuff validated - Serial growth ultrasound starting at 24 weeks - Twice weekly testing at 32 weeks, discussed 4/3 planning to do with primary Assessment & Plan (06/23/2022 10:53 AM INSTRUCTIONAL SUPPORT SERVICES DIRECTOR): BP log reviewed with mild range Bps. Encouraged compliance with labetalol 200 mg BID. BP parameters to hold and hypotension precautions reviewed. Strongly encouraged weekly logs to MFM for review to ensure proper doses of meds. MFM RN to room to discuss weekly logs and review contact info. Rh negative state in antepartum period, third tr imester 05/07/2022 Overview (09/08/2022): [x] Rhogam at 28 weeks- received 08/29/22 (scanned under media) History of pre-eclampsia in prior , currently , first trimester 05/07/2022 Overview (06/19/2022): Krystina states that it was unclear if she had pre-eclampsia in her last as they did not have a baseline urine protein. She has generally been treated as though she had pre-eclampsia. Previously counseled Plan: - Baseline PIH labs: WNL - Low dose ASA Supervision of high-risk , third trimes ter 05/07/2022 Overview (10/07/2022): [x] Co-management [x] Blue Team Referring Provider: Cristine Warren [phone] [] or Medicare Insurance [x] Dating Criteria: [...] [] MOC: [] Method of feeding: [] Senior It Specialist: [] PP Depression Discussed: Snoring 01/16/2022 Uncomplicated asthma 04/23/2021 Nontoxic goiter, unspecified 01/30/2021 History of Left atrial enlargement 12/31/2020 Overview (07/24/2022): Echocardiogram 02/10/2017 EF 70%, mild concentric LVH, hyperdynamic LV function, diastolic dysfunction, no regional wall motion abnormalities, moderate left atrial enlargement, mild [place]- copy scanned into Media Echo 07/22/22: Left [...] 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 Never 09/18/2022 Do you belong to any clubs o r organizations such as christian groups, unions, fraternal or athletic groups, or [...] place to sleep or slept in a care home (including now)? No 09/18/2022 Housing Stability Vital [...] 10/10/2024 3:31 AM CDT Plan of Treatment Not on file Procedures Procedure Name Priority Date/Time Associated Diagnosis [...] 2019. Trop I hs delta 0 ng/L [facility] Trop I hs interp Insignificant [facility] Blood 10/10/2024 6:32 AM CDT 10/10/2024 6:47 AM CDT us Abbe Moncada MD LAB BLOOD ORDERABLES Final Res ult Performing Organization Address [facility]/ZIP Co de Phone Number RAFAL [facility] [place] [address] * POCT Rapid HIV Antibody Community Screening-Mandi Eligible (10/10/2024 6:23 AM CDT) [facility] Rapid HIV, POC Negative Negative Lot Number [id number] QC Control Line Acceptable Blood 10/10/2024 6:23 AM CDT us Jose C Morales MD POINT OF CARE TEST ORDERABLES Final Result * Troponin I high-sensitivity series (baseline, 2hr, 4hr, 6hr) (10/10/2024 4:16 AM CDT) [facility] Trop I hs <4 <=17 ng/L Comment: Interpretive Data For further hscTnI resources including the diagnostic algorithm and an aid in interpretation, copy and paste this link: [email or web address]/[email or web address] Current Interpretive Data last revised 2019. Blood 10/10/2024 4:16 AM CDT 10/10/2024 4:27 AM CDT us Abbe Moncada MD LAB BLOOD ORDERABLES Final Res ult Performing Organization Address [facility] Co de Phone Number RAFAL [facility] Department [place] [address] * eGFR (10/10/2024 4:16 AM CDT) [facility] eGFR 73 >=60 mL/min/1. 73 m2 Comment: [...] of Race in Diagnosing Kidney Disease, JASN 202). The CKD-EPI equation should not be used for patients with unstable renal function and has not been validated in children and those over 70. Current interpretive data was last reviewed 2021. Blood 10/10/2024 4:16 AM CDT 10/10/2024 4:27 AM CDT us Abbe Moncada MD LAB BLOOD ORDERABLES Final Res ult [facility] [place] [address] * Differential, auto (10/10/2024 4:16 AM CDT) Neutrophil abs 6.30 1.50 - 6.50 K/cumm Imm gran abs 0.03 0.00 - 0.10 K/cumm [facility] Lymphocyte abs 1.72 0.80 - 3.30 K/cumm [facility] Monocyte abs 0.38 0.20 - 0.80 K/cumm [facility] Eosinophil abs 0.06 0.00 - 0.50 K/cumm [facility] Basophil abs 0.02 0.00 - 0.10 K/cumm [facility] Neutrophil pct 74.0 % [facility] Comment: Interpretive Data Percent cell count reference ranges are not reported, since discordance with absolute values may lead to misinterpretation of CBC data. Current Interpretive Data was last revised on 2017. Imm gran pct 0.4 % [facility] Comment: Interpretive Data Percent cell count reference ranges are not reported, since discordance with absolute values may lead to misinterpretation of CBC data. Current Interpretive Data was last revised on 2017. Lymphocyte pct 20.2 % [facility] Comment: Interpretive Data Percent cell count reference ranges are not reported, since discordance with absolute values may lead to misinterpretation of CBC data. Current Interpretive Data was last revised on 2017. Monocyte pct 4.5 % [facility] Comment: Interpretive Data Percent cell count reference ranges are not reported, since discordance with absolute values may lead to misinterpretation of CBC data. Current Interpretive Data was last revised on 2017. Eosinophil pct 0.7 % [facility] Comment: Interpretive Data Percent cell count reference ranges are not reported, since discordance with absolute values may lead to misinterpretation of CBC data. Current Interpretive Data was last revised on 2017. Basophil pct 0.2 % [facility] Comment: Interpretive Data Percent cell count reference ranges are not reported, since discordance with absolute values may lead to misinterpretation of CBC data. Current Interpretive Data was last revised on 2017. Blood 10/10/2024 4:16 AM CDT 10/10/2024 4:27 AM CDT us Abbe Moncada MD LAB BLOOD ORDERABLES Final Res ult [facility] [place] [address] * Urinalysis reflex to microscopic (10/10/2024 4:16 AM CDT) Color, ur Straw Yellow Clarity, ur Clear Clear [facility] Specific gravity, ur 1.013 1.003 - 1.030 [facility] pH, urine 7.0 [facility] Comment: Interpretive Data U rine pH is affected by diet, medications, systemic acid-base disturbances, and renal tubular function. pH may affect urinary stone formation. For example, urine pH below 6.0 may help reduce the tendency for calcium phosphate stones and pH greater than 6.0 may reduce the tendency for uric acid stone formation. Source: Luristic Current Interpretive Data was last revised on 2017 Protein, ur ql Negative Negative [facility] Glucose, ur ql Negative Negative [facility] Ketones, ur Negative Negative [facility] Bilirubin, ur Negative Negative [facility] Blood, ur Negative Negative [facility] Urobilinogen, ur <2.0 <2.0 mg/dL [facility] Nitrite, ur Negative Negative [facility] Leukocyte esterase, ur Negative Negative [facility] UA reflex comment Reflex conditions for microscopic UA not met. [facility] Urine 10/10/2024 4:16 AM CDT 10/10/2024 4:21 AM CDT Abbe Moncada MD LAB URINE ORDERABLES Final Res ult Performing Organization Address [facility]/ZIP Co de Phone Number [facility] [place] [address] * (ABNORMAL) CBC with auto differential (10/10/2024 4:16 AM CDT) WBC 8.51 3.80 - 9.90 K/cumm Hgb 12.0 11.9 - 15.5 g/dL [facility] Hct 35.0(L) 35.6 - 45.5 % [facility] Plt 246 150 - 400 K/cumm [facility] MPV 11.3 9.1 - 12.3 fL [facility] RBC 4.23 3.90 - 5.20 M/cumm [facility] MCV 82.7 81.3 - 96.4 fL [facility] MCH 28.4 27.1 - 33.3 pg [facility] MCHC 34.3 32.3 - 35.7 g/dL [facility] RDW CV 13.1 11.1 - 14.9 % [facility] RDW SD 39.4 35.7 - 48.1 fL [facility] NRBC abs 0.00 0.00 - 0.01 K/cumm [facility] Blood 10/10/2024 4:16 AM CDT 10/10/2024 4:27 AM CDT Abbe Moncada MD LAB BLOOD ORDERABLES Final Res ult Performing Organization Address City/[facility]/ZIP Co de Phone Number [facility] Department [place] [address] * (ABNORMAL) TSH (10/10/2024 4:16 AM CDT) Pathologist [facility] Thyroid Stimulating Hormone 16.20(H) 0.30 - 4.20 mcIUnit/mL Blood Venous blood specimen / Unknown 10/10/2024 4:16 AM CDT 10/10/2024 4:27 AM CDT Abbe Moncada MD LAB BLOOD ORDERABLES Final Res ult Performing Organization Address [facility] de Phone Number [facility] [place] [address] * T4, free (10/10/2024 4:16 AM CDT) [facility] Free T4 1.57 0.90 - 1.70 ng/dL Blood 10/10/2024 4:16 AM CDT 10/10/2024 4:27 AM CDT Result [facility] Jose C Rodriguez MD LAB BLOOD ORDERABLES Final Result Performing Organization Address [facility] de Phone Number [facility] [address] * Hemoglobin A1c (10/10/2024 4:16 AM CDT) [facility] Hgb A1C 4.9 4.0 - 5.6 % Estimated Average Glucose 94 mg/dL [facility] Comment: The ADA recommends reporting an [...] Rodriguez MD LAB BLOOD ORDERABLES Final Result [facility] Department [place] [address] * Comprehensive metabolic panel (10/10/2024 4:16 AM CDT) Sodium 145 135 - 145 mmol/L Potassium, pl 4.3 3.3 - 4.9 mmol/L [facility] Chloride 108 97 - 110 mmol/L [facility] CO2 24 22 - 32 mmol/L [facility] Anion gap 13 2 - 15 mmol/L [facility] BUN 16 6 - 25 mg/dL [facility] Creatinine 1.04 0.60 - 1.10 mg/dL [facility] Glucose 103 70 - 199 mg/dL [facility] Comment: Interpretive Data Fasting glucose >/= [...] classification and Diagnosis of Diabetes Diabetes Care 2021; 46: S19-S40. Current interpretive data was last revised 2022. Calcium 9.9 8.5 - 10.3 mg/dL [facility] Bilirubin, total 0.3 0.1 - 1.2 mg/dL [facility] Protein, pl 8.0 6.5 - 8.5 g/dL [facility] Albumin 4.8 3.5 - 5.0 g/dL [facility] Alk phos 86 40 - 130 Units/L [facility] ALT 10 7 - 45 Units/L [facility] AST 25 10 - 45 Units/L [facility] Blood Venous blood specimen / Unknown 10/10/2024 4:16 AM CDT 10/10/2024 4:27 AM CDT us Abbe Moncada MD LAB BLOOD ORDERABLES Final Res ult [facility] Supriya [facility] Department [place] [address] * POCT hCG, urine (10/10/2024 4:14 AM CDT) HCG, ur, POC Negative Negative Lot Number [id number] QC Backgroud Clear Acceptable QC Control Line Acceptable Urine 10/10/2024 4:14 AM CDT Result [facility] Abbe Moncada MD POINT OF CARE TEST ORDERABLES Final Result * ECG 12-LEAD (10/10/2024 4:06 AM CDT) Narrative [facility] - 10/10/2024 4:06 AM CDT Jose C Morales MD 10/10/2024 4:07 AM ECG 12 lead Date/Time: 10/10/2024 4:06 AM Performed by: Jose C Morales MD Authorized by: Abbe Gan MD Rate: ECG rate assessment comment: 55, sinus bradycardia, normal axis, twi and st depression in III and aVF, V3-V4. t wave flattening in V6. Abbe Moncada MD ECG ORDERABLES Final Result [facility] * Neuro CT Outside Consult (10/10/2024 4:04 [...] images may or may not represent the cahto source data set and thus may contain [...] IMAGING STUDY STUDY INITIALLY PERFORMED: 10-09-24 at [facility]. TYPE OF STUDY: Multiple CTA images of [...] narrowing or filling defects are identified. The [id number] is complete. The anterior and middle cerebral arteries are normal. The vertebral arteries are codominant. The basilar artery is normal. The posterior cerebral arteries are normal. There is no aneurysm or vascular malformation identified. Procedure Note Fausto Nuno MD PhD - 10/10/2024 EXAMINATION: RADIOLOGY CONSULTATION ON OUTSIDE IMAGING STUDY STUDY INITIALLY PERFORMED: 10-09-24 at [facility]. TYPE OF STUDY: Multiple CTA images of [...] narrowing or filling defects are identified. The qghurf-fm-Dguudh is complete. The anterior and middle cerebral [...] images may or may not represent the cahto source data set and thus may contain [...] images may or may not represent the cahto source data set and thus may contain [...] IMAGING STUDY STUDY INITIALLY PERFORMED: 10-09-24 at [facility]. TYPE OF STUDY: Multiple CTA images of [...] narrowing or filling defects are identified. The [id number] is complete. The anterior and middle cerebral arteries are normal. The vertebral arteries are codominant. The basilar artery is normal. The posterior cerebral arteries are normal. There is no aneurysm or vascular malformation identified. Procedure Note Fausto Nuno MD PhD - 10/10/2024 EXAMINATION: RADIOLOGY CONSULTATION ON OUTSIDE IMAGING STUDY STUDY INITIALLY PERFORMED: 10-09-24 at [facility]. TYPE OF STUDY: Multiple CTA images of [...] narrowing or filling defects are identified. The guuugx-ae-Adjirl is complete. The anterior and middle cerebral [...] images may or may not represent the cahto source data set and thus may contain [...] antibody (04/14/2022) SCRIBED HCV ab negative Blood Cristine Warren MD LAB MICROBIOLOGY - GENERAL ORDERABLES Final Result from Last 3 Months or Most Recently Relevant to Health Maintenance Insurance [facility] Advance Directives For more information, please contact: [phone] * Full Code (Latest Code Status on File) Date Activated Date Inactivated Comments 09/26/2022 6:05 PM 09/29/2022 3:54 PM * Full Code Date Activated Date Inactivated Comments 09/17/2022 2:18 PM 09/20/2022 3:42 PM Care Teams Dental Assistant Teacher Relationship Specialty Start Date End Date Lizandro Perry MD [address] [place] [address] PCP - General Pediatrics 09/24/20
--- OUTSIDE RECORDS SUMMARY | 2024-10-12 13:47 | XMS_ITS | Patient Health Record ---
Author Organization [facility] Address [address] [place] [address] Care Team Providers Care Developer [employer] Name Role Phone Mandie Arminda Primary Care Provider [phone] Jasson Howard Unavailable [phone] Teresa Benitez Unavailable [phone] Dr. Lizandro [place] Unavailable [phone] Migration, Provider Unavailable Unavailable Allergies Allergen (clinical drug ingredient) Drug/Non Drug Allergy documented on EMR Reaction Allergy Type Onset Date Status amoxicillin / clavulanate Augmentin diarrhea Drug Allergy 04/22/2022 Active Results Component Value Reference Range Notes Beta Human Chorionic Gonadot ropin Quantitative Reviewed date:02/04/2024 12:00:00 AM Interpretation: Performing Lab: Notes/Report: HCG, Beta Quantitative <0.6 mIU/mL CBC w/ Diff Reviewed date:02/04/2024 12:00:00 AM Interpretation: Performing Lab: Notes/Report: Basophil Auto 0.6 % Eos Absolute 0.1 x10*3/mcL Eosinophil Auto 1.1 % Hct 36.5 % Hgb 12.3 g/dL Lymph Absolute 2.0 x10*3/mcL Lymph Auto 34.7 % MCH 28.5 pg MCHC 33.7 g/dL MCV 84.4 fL Grundy Absolute 0.4 x10*3/mcL Grundy Auto 6.9 % MPV 9.4 fL Neutro Absolute 3.3 x10*3/mcL Neutro Auto 56.7 % Platelets 223 K/mcL RBC 4.32 x10*6/mcL RDW 13.2 % WBC 5.9 K/mcL Comprehensive Metabolic Pane l Reviewed date:02/04/2024 12:00:00 AM Interpretation: Performing Lab: Notes/Report: Albumin Lvl 4.4 g/dL Albumin/Globulin Ratio 1.7 Alk Phos 65 unit/L ALT 12 unit/L ANION GAP 7.8 mmol/L AST 15 unit/L Bilirubin Total 0.4 mg/dL BUN 14 mg/dL Calcium Lvl 9.1 mg/dL Chloride Lvl 107 mmol/L CO2 26 mmol/L Creatinine Lvl 0.97 mg/dL eGFR CKD-EPI 79 mL/min/1.73 m2 Glucose Lvl 93 mg/dL Potassium Lvl 4.1 mmol/L Protein Total 7.0 g/dL Sodium Lvl 141 mmol/L Hemoglobin A1c {Glycosylated } Reviewed date:02/04/2024 12:00:00 AM Interpretation: Performing Lab: Notes/Report: eAvg Glucose 88 mg/dL Hemoglobin A1c 4.7 % IH Urinalysis Reviewed date:02/03/2024 12:00:00 AM Interpretation: Performing Lab: Notes/Report: Bilirubin small Blood neg Glucose neg Ketone small Leukcoytes mod Nitrite neg pH 5.0 Protein 30 Specific Vanderwagen 1.010 Urobilinogen .2 Urine Culture Reviewed date:02/04/2024 12:00:00 AM Interpretation: Performing Lab: Notes/Report: C Urine See Below Reason For Referral No Information Medications Medication SIG (Take, Route, Frequency, Duration) Notes Start Date End Date Status Olmesartan Medoxomil 5 MG Tablet 1 tablet Orally twice a day; Duration: 30 days 10/11/2024 Active SUMAtriptan Succinate 50 MG Tablet 1 tablet as needed, may take second dose at least 2 hours after first dose up to 4 tablets per day as needed Orally Once a day; Duration: 90 days 10/11/2024 Active Nurtec 75 MG Tablet Disintegrating 1 tablet on the tongue and allow to dissolve Orally daily; Duration: 30 days 09/15/2024 Not-Taking Ubrelvy 50 MG Tablet 1 tablet Orally Once a day; Duration: 30 days as needed, may take second dose at least 2 hours after first dose up to 4 tablets per day as needed 10/06/2024 Not-Taking Labetalol HCl 200 MG Tablet 1 tablet Orally Twice a day; Duration: 90 days Active Albuterol Sulfate 108 (90 Base) MCG/ACT Aerosol Powder Breath Activated 1 puff as needed Inhalation every 4 hrs Active amLODIPine Besylate 5 MG Tablet 1 tablet Orally Once a day Not-Taking Social History Social History Additional Details Category Social Info Options Details Migrated Social History Migrated Social History Number of cigarettes/day: None currently (only vapes) , Marital status: , Frequency of drinks:Socially , Alcohol history:Currently drinks alcohol , Number of children:1 , Tobacco history:Current every day smoker (only vapes now) Problems Problem Type SNOMED Code ICD Code Onset Dates Problem Status W/U Status Risk Notes Problem Migraine (70598444) Migraine without status migrainosus, not intractable, unspecified migraine type (G43.909) Active confirmed Problem New daily persistent headache (disorder) (475520758739593) Persistent headaches (R51.9) Active confirmed Problem Generalized anxiety disorder (00292662) Generalized anxiety disorder (F41.1) 08/25/19 24 Active confirmed Problem Essential hypertension (19262690) Essential (primary) hypertension (I10) 02/03/20 24 Active confirmed Problem Snoring (90422640) Snoring (R06.83) 01/17/20 22 Active confirmed Problem Cyst of right ovary (0347152690769781 8) Unspecified ovarian cyst, right side (N83.201) 02/03/20 24 Active confirmed Problem Noncompliance with treatment (finding) (8604344) Patient's noncompliance with other medical treatment and regimen due to unspecified reason (Z91.199) 01/02/20 23 Active confirmed Problem Decreased blood pressure (finding) (21842425) Nonspecific low blood-pressure reading (R03.1) 12/06/19 22 Inactive confirmed Problem Overweight (630153560) Overweight (E66.3) 02/06/20 21 Problem resolved confirmed Problem Acute tonsillitis (51431234) Acute tonsillitis, unspecified (J03.90) 01/17/20 22 Problem resolved confirmed Problem Allergic rhinitis (93736763) Allergic rhinitis, unspecified (J30.9) 02/07/20 21 Problem resolved confirmed Problem Chronic sinusitis (91883493) Chronic sinusitis, unspecified (J32.9) 01/31/20 21 Problem resolved confirmed Problem Primary amenorrhea (507699553) Primary amenorrhea (N91.0) 01/31/20 21 Problem resolved confirmed Problem Pelvic and perineal pain (729536946) Pelvic and perineal pain (R10.2) 03/03/20 22 Problem resolved confirmed Problem Generalized abdominal pain (038472609) Generalized abdominal pain (R10.84) 04/23/20 21 Problem resolved confirmed Problem Hepatomegaly (84534974) Hepatomegaly, not elsewhere classified (R16.0) 04/23/20 21 Problem resolved confirmed Problem Fever (673488725) Fever, unspecified (R50.9) 08/19/19 23 Problem resolved confirmed Problem Localized enlarged lymph nodes (657625194) Localized enlarged lymph nodes (R59.0) 03/19/20 21 Problem resolved confirmed Problem test positive (453029985) Encounter for test, result positive (Z32.01) 03/03/20 22 Problem resolved confirmed Problem state of fetus, 1st trimester (80365324) Encounter for supervision of normal , unspecified, first trimester (Z34.91) 04/22/20 22 Problem resolved confirmed Problem Surrogate (569228721) state, gestational carrier (Z33.3) 08/19/19 23 Problem resolved confirmed Problem Suspected disease caused by Severe acute respiratory coronavirus 2 (situation) (945222686) Encounter for screening for COVID-19 (Z11.52) 02/07/20 21 Problem resolved confirmed Problem Finding related to (301352229) Other specified related conditions, first trimester (O26.891) 03/03/20 22 Problem resolved confirmed Problem Irregular menstruation (79672401) Irregular menstruation, unspecified (N92.6) 01/23/20 21 Problem resolved confirmed Problem Chronic disease of tonsils AND/OR adenoids (15727078) Other chronic diseases of tonsils and adenoids (J35.8) 01/17/20 22 Problem resolved confirmed Problem Acute pharyngitis (969332669) Acute pharyngitis, unspecified (J02.9) 04/23/20 21 Problem resolved confirmed Problem Eustachian tube disorder (86409621) Other specified disorders of Eustachian tube, unspecified ear (H69.80) 07/02/19 22 Problem resolved confirmed Problem Otitis media (45818971) Otitis media, unspecified, right ear (H66.91) 04/22/20 22 Problem resolved confirmed Problem Cyst of left ovary (3307535131430323 8) Unspecified ovarian cyst, left side (N83.202) 02/03/20 24 Active confirmed Problem Tobacco use (403565068) Tobacco use (Z72.0) 01/10/20 23 Active confirmed Problem Uncomplicated asthma (disorder) (727143164) Unspecified asthma, uncomplicated (J45.909) 04/23/20 21 Active confirmed Problem 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 Temperature 97.4 degrees Fahrenheit 10/11/2024 Respiratory Rate 14 /min 05/11/2024 Height-cm 154.94 cm 10/12/2024 Upon walking in office 148/70, bp sitting for ten minutes 150/98 pulse 68, bp standing 124/90 pulse 70. Oximetry 99 % 10/12/2024 Upon walking in office 148/70, bp sitting for ten minutes 150/98 pulse 68, bp standing 124/90 pulse 70. Blood pressure diastolic 98 mm Hg 10/12/2024 Upo n walking in office 148/70, bp sitting for ten minutes 150/98 pulse 68, bp standing 124/90 pulse 70. Weight-kg 78.06 kg 10/11/2024 Height 61.00 in 10/12/2024 Upon walking in office 148/70, bp sitting for ten minutes 150/98 pulse 68, bp standing 124/90 pulse 70. Blood pressure systolic 150 mm Hg 10/12/2024 Upon walking in office 148/70, bp sitting for ten minutes 150/98 pulse 68, bp standing 124/90 pulse 70. Weight 172.1 lbs 10/11/2024 BMI 32.51 kg/m2 10/11/2024 Encounters Encounter Location Date Provider Diagnosis [address] [address] 02/03/2024 Dr. Lizandro [place] Dorsalgia, unspecified M54.9 ; Urinary tract infection, site not specified N39.0 ; Essential (primary) hypertension I10 ; Unspecified ovarian cyst, right side N83.201 ; Unspecified ovarian cyst, left side N83.202 and Unspecified abdominal pain R10.[address] [address] 10/12/2024 Teresa Benitez Dizziness R42 [address] [address] 05/11/2024 Jasson GonzalezAnita Unilateral headache R51.9 and Essential (primary) hypertension I10 [address] [address] 08/25/2024 Teresa Benitez Essential (primary) hypertension I10 ; Tobacco use Z72.0 and Persistent headaches R51.[address] [address] 10/11/2024 Teresa Benitez Essential (primary) hypertension I10 ; Hypertensive crisis I16.9 ; Migraine without status migrainosus, not intractable, unspecified migraine type G43.909 ; Elevated TSH R79.89 ; Visual disturbance H53.9 ; Acute hypokalemia E87.6 and Urinary frequency R35.[address] [address] 04/23/2024 Provider Migration [address] [address] 04/24/2024 Provider Migration [address] [address] 09/15/2024 Teresa Benitez [address] [address] 10/05/2024 Teresa Benitez Migraine without status migrainosus, not intractable, unspecified migraine type G43.[address] [address] 10/10/2024 Arminda Lockwood Assessments Encounter Date Diagnosis (ICD Code) Assessment Notes Treatment Notes Treatment Clinical Notes Section Notes 10/12/2024 Dizziness (ICD-10 - R42) 10/05/2024 Migraine without status migrainosus, not intractable, unspecified migraine type (ICD-10 - G43.909) 08/25/2024 Essential (primary) hypertension (ICD-10 - I10) - Recommend low sodium diet/heart healthy diet, daily intentional exercise or movement, weight management, and medication compliance for best control of blood pressure - Routine monitoring of CMP (electrolytes/kidne y function) and Lipid panel every 3-6 months. Recommend labs soon. - Continue current medication regimen with compliance. - Encouraged monitoring blood pressure at home daily (check BP upon awakening, then 1-2 hours after taking BP medication) and log readings - Goal BP to be less than 130/80. - Monitor for symptoms such as: chest pain, dyspnea, swelling in legs fatigue, dizziness upon standing, vision changes and/or worsening headaches. 08/25/2024 Tobacco use (ICD-10 - Z72.0) - Discussed how tobacco use can worsen headaches and worsen blood pressure. - Advsied to quit smoking/vaping. - She is not ready to quit yet. 08/25/2024 Persistent headaches (ICD-10 - R51.9) - Headaches may be related to hormone shifts and inflammation. Differential diagnosis includes tension headaches and migraines.- Consider trying supplementation with Magnesium Glycinate for potential benefits on migraines, anxiety, insomnia, and cardiac health. - Explore the use of OTC Naproxen or high-dose ibuprofen for headache management PRN or even Excedrin PRN.- Gave her samples of migraine abortive medications (1) Ubrelvy and (1) Nurtec for trial. - If headaches worsen or do not improve with current management strategies, consider further evaluation with imaging studies to rule out other causes. Discuss the possibility of trying different migraine abortive medications or adjusting current treatment as needed. 05/11/2024 Essential (primary) hypertension (ICD-10 - I10) The patient's blood pressure will be monitored, especially while on the steroid pack for the headache. If the patient's blood pressure consistently sits over 170, the patient is advised to stop taking the steroid pack. 05/11/2024 Unilateral headache (ICD-10 - R51.9) 6mg dex and 30mg torodal administered. The patient will be given a steroid pack to help manage the headache, discussed risk and benefits of meds. The patient is also advised to continue taking Tylenol or Motrin as needed for pain management, no motrin today after torodal shot. The patient's blood pressure will be monitored while on the steroid pack. If the patient's blood pressure consistently sits over 170, the patient is advised to stop taking the steroid pack. May consider migraine cessation medication if headache in persistent with treatment. 02/03/2024 Essential (primary) hypertension (ICD-10 - I10) 02/03/2024 Dorsalgia, unspecified (ICD-10 - M54.9) 02/03/2024 Urinary tract infection, site not specified (ICD-10 - N39.0) 02/03/2024 Unspecified abdominal pain (ICD-10 - R10.9) 02/03/2024 Unspecified ovarian cyst, right side (ICD-10 - N83.201) 02/03/2024 Unspecified ovarian cyst, left side (ICD-10 - N83.202) 10/11/2024 Essential (primary) hypertension (ICD-10 - I10) - Blood pressure extremely elevated at 225/146 in ER, reduced to 160/100 after treatments. - Current medications include Labetalol 200 mg twice daily. Amlodipine was started in ER briefly, but not well tolerated in the past.- Start Olmesartan 5mg twice daily. Continue Labetalol BID 200mg. - Monitor blood pressure at home three times a day. - Follow-up in two weeks. - Consider thiazide diuretic (HCTZ) if Olmesartan is not effective. - Monitor electrolytes one month after starting Olmesartan (CMP and Mg levels). 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 10/11/2024 Hypertensive crisis (ICD-10 - I16.9) 10/11/2024 Migraine without status migrainosus, not intractable, unspecified migraine type (ICD-10 - G43.909) - Migraine headache with vision loss and temporal/zygomatic region pain. (Potential temporal arteritis). - Prescribe prednisone taper for 9 days. - Trial triptan to use as needed for abortive medication.- Follow-up on insurance coverage for [employer] vs.[employer] coverage. Provided 2 samples of [employer], office is out of [employer]. 10/11/2024 Elevated TSH (ICD-10 - R79.89) - High TSH level noted in ER, potential autoimmune thyroid disorder with normal T4. - Order thyroid antibody (TPO). Monitor thyroid levels every 4-6 weeks if TPO is normal. 10/11/2024 Visual disturbance (ICD-10 - H53.9) - Vision disturbances possibly related to high blood pressure vs. migraine headache vs. arteritis vs. other causes. - CTA of the head showed no abnormalities. - Follow-up with lan specialist at [place]. Continue monitoring vision changes. Resolved with better BP control at this time. 10/11/2024 Acute hypokalemia (ICD-10 - E87.6) 10/11/2024 Urinary frequency (ICD-10 - R35.0) - Possible overactive bladder. No UTI (based on urinalysis in ER on (10/10) or diabetes based on normal urinalysis, blood glucose and A1C of 4.9% done in ER on (10/10). - Monitor symptoms and recommend pelvic floor therapy/exercises. - Consider urology referral if symptoms persist or worsen. Plan Of Treatment Pending Test Test Name Order Date Thyroid Peroxidase (TPO) Ab 10/11/2024 Glucose (glucometer) 10/12/2024 Insurance Providers Payer Name Payer Address Payer Phone Subscriber Number Group Number Insured Name Patient Relationship to Insured Coverage Start Date Coverage End Date [facility] [address] [place] [address] [id number] Krystina Palmer Self - patient is the insured 5 Medications Administered Medication Instructions Date of Administration Dosage Notes dexAMETHasone 05/11/2024 6 mg Ketorolac Tromethamine 05/11/2024 30 mg Medical (General) History Medical History History ICD Code Hormonal migraines during adolescence Overweight (resolved ) E66.3 Otitis media, unspecified, right ear (re solved ) H66.91 Other specified disorders of Eustachian tube, unspecified ear (resolved ) H69.80 Acute pharyngitis, unspecified (resolved ) J02.9 Acute tonsillitis, unspecified (resolved ) J03.90 Allergic rhinitis, unspecified (resolved ) J30.9 Chronic sinusitis, unspecified (resolved ) J32.9 Other chronic diseases of tonsils and ad enoids (resolved ) J35.8 Primary amenorrhea (resolved ) N91.0 Irregular menstruation, unspecified (res olved ) N92.6 Other specified related condit ions, first trimester (resolved ) O26.891 Pelvic and perineal pain (resolved ) R10 .2 Generalized abdominal pain (resolved ) R 10.84 Hepatomegaly, not elsewhere classified ( resolved ) R16.0 Fever, unspecified (resolved ) R50.9 Localized enlarged lymph nodes (resolved ) R59.0 Encounter for test, result pos itive (resolved ) Z32.01 Encounter for supervision of normal , unspecified, first trimester (resolved ) Z34.91 state, gestational carrier (res olved ) Z33.3 Encounter for screening for COVID-19 (re solved ) Z11.52 Surgical History Surgery Date(Month/Year) tympanostomy tube placement Dilation and curettage 07/26/2020 Treadmill stress test 07/26/2020
--- OUTSIDE RECORDS SUMMARY | 2024-10-12 13:47 | XMS_ITS | Encounter Summary ---
Author Organization [facility] Address [address] [place] [address] Care Team Providers Care Religious Educator Name Role Phone Parveen Crews MD Primary Care Provider [phone] Parveen Crews MD Primary Care Provider Lizandro [place] MD Primary Care Provider [phone] Encounter Details Date Type Department Care Team (Late st Contact Info) Description 02/10/2017 Orders Only [facility] [place] [facility] [address] [place] [address] Scanning, Provider Social History Tobacco Use Types Packs/Day Years Used Date Smoking Tobacco: Never Assessed Comments Unknown Sex and Gender Information Value Date Recorded Sex Assigned at Not on file Legal Sex Female 12:28 PM CDT Gender Identity Not on file Sexual Orientation Not on file documented as of this encounter Plan of Treatment Not on file documented as of this encounter Procedures Procedure Name Priority Date/Time Associated Diagnosis Comments CARDIOLOGY DOCUMENT SCAN 02/10/2017 documented in this encounter Results * CARDIOLOGY DOCUMENT SCAN (02/10/2017) Anatomical Region Laterality Modality Other us Provider Scanning CV CARDIAC SERVICES PROCEDURES Final Result documented in this encounter Visit Diagnoses Not on filedocumented in this encounter Care Teams Religious Educator Relationship Specialty Start Date End Date Parveen Crews MD [address] [facility] [address] PCP - General Family Practice 02/11/17 09/23/20 Parveen Crews MD [address] [facility] [place] [address] PCP - General Family Practice 01/23/17 02/10/17 Lizandro [place] MD [address] [place] [address] PCP - General Pediatrics 09/24/20 documented as of this encounter
--- OUTSIDE RECORDS SUMMARY | 2024-10-12 13:47 | XMS_ITS ---
Author Organization [facility] Address [address] [place] [address] Care Team Providers Care Textile Chemist Name Role Phone Arminda Lockwood Primary Care Provider [phone] Teresa Benitez Unavailable [phone] Allergies Allergen (clinical drug ingredient) Drug/Non Drug Allergy documented on EMR Reaction Allergy Type Onset Date Status amoxicillin / clavulanate Augmentin diarrhea Drug Allergy 04/22/2022 Active REASON FOR VISIT Migraine f/u and ER f/u Medications Medication SIG (Take, Route, Frequency, Duration) Notes Start Date End Date Status amLODIPine Besylate 5 MG Tablet 1 tablet Orally Once a day Not-Taking Olmesartan Medoxomil 5 MG Tablet 1 tablet [...] as needed Inhalation every 4 hrs Active Social History Social History Additional Details Category Social Info Options Details Migrated Social History Migrated Social History Number of cigarettes/day: None currently (only vapes) , Marital status: , Frequency of drinks:Socially , Alcohol history:Currently drinks alcohol , Number of children:1 , Tobacco history:Current every day smoker (only vapes now) Vital Signs Temperature 97.4 degrees Fahrenheit 10/12/19 25 Blood pressure systolic 158 mm Hg 10/12/19 25 Blood pressure diastolic 100 mm Hg 025 Heart Rate 69 /min 10/11/2024 Height 61.00 in 10/11/2024 Weight 172.1 lbs 10/11/2024 BMI 32.51 kg/m2 10/11/2024 Oximetry 98 % 10/11/2024 Height-cm 154.94 cm 10/11/2024 Weight-kg 78.06 kg 10/11/2024 Encounters Encounter Location Date Provider Diagnosis [address] [address] 10/11/2024 Teresa Benitez Essential (primary) hypertension I10 ; Hypertensive crisis I16.9 ; Migraine without status migrainosus, not intractable, unspecified migraine type G43.909 ; Elevated TSH R79.89 ; Visual disturbance H53.9 ; Acute hypokalemia E87.6 and Urinary frequency R35.0 Assessments Encounter Date Diagnosis (ICD Code) Assessment Notes Treatment Notes Treatment Clinical Notes Section Notes 10/11/2024 Essential (primary) hypertension (ICD-10 - I10) [...] (CMP and Mg levels). - F/U with distance learning administrator as soon as possible, will manage for now for better control in our office. 10/11/2024 Hypertensive crisis (ICD-10 - I16.9) 10/11/2024 Migraine without status migrainosus, not intractable, unspecified migraine type (ICD-10 - G43.909) - Migraine headache with vision loss and temporal/zygomat ic region pain. (Potential temporal arteritis). - Prescribe prednisone taper for 9 days. - Trial triptan to use as needed for abortive medication.- Follow-up on insurance coverage for [employer] vs.[employer] coverage. Provided 2 samples of [employer], office is out of [facility]. 10/11/2024 Elevated TSH (ICD-10 - R79.89) - [...] head showed no abnormalities. - Follow-up with chargeback specialist at [place]. Continue monitoring vision changes. Resolved with better BP control at this time. 10/11/2024 Acute hypokalemia (ICD-10 - E87.6) 10/11/2024 Urinary frequency (ICD-10 - R35.0) - Possible overactive bladder. No UTI (based on urinalysis in ER on (10/10) or diabetes based on normal urinalysis, blood glucose and A1C of 4.9% done in ER on (10/10). - Monitor symptoms and recommend pelvic floor therapy/exercise s. - Consider urology referral if symptoms persist or worsen. Plan Of Treatment Medication Medication Name Sig Start Date Stop Date Notes Olmesartan Medoxomil 5 MG Tablet 1 tablet Orally twice a day; Duration: 30 days 10/11/2024 SUMAtriptan Succinate 50 MG Tablet 1 tablet as needed, may take second dose at least 2 hours after first dose up to 4 tablets per day as needed Orally Once a day; Duration: 90 days 10/11/2024 Treatment Notes Assessment Notes Essential (primary) hypertension - Blood pressure extremely elevated at 225/146 [...] (CMP and Mg levels). - F/U with distance learning administrator as soon as possible, will manage for now for better control in our office. Migraine without status migr ainosus, not intractable, unspecified migraine type - Migraine headache with vision loss and temporal/zygomatic region pain. (Potential temporal arteritis). - Prescribe prednisone taper for 9 days. - Trial triptan to use as needed for abortive medication.- Follow-up on insurance coverage for [employer] vs.[employer] coverage. Provided 2 samples of Str[employer], office is out of [facility]. Elevated TSH - High TSH level noted in ER, potential autoimmune thyroid disorder with normal T4. - Order thyroid antibody (TPO). Monitor thyroid levels every 4-6 weeks if TPO is normal. Visual disturbance - Vision disturbances possibly related to high blood pressure vs. migraine headache vs. arteritis vs. other causes. - CTA of the head showed no abnormalities. - Follow-up with chargeback specialist at [place]. Continue monitoring vision changes. Resolved with better BP control at this time. Urinary frequency - Possible overactive bladder. No UTI (based on urinalysis in ER on (10/10) or diabetes based on normal urinalysis, blood glucose and A1C of 4.9% done in ER on (10/10). - Monitor symptoms and recommend pelvic floor therapy/exercises. - Consider urology referral if symptoms persist or worsen. Pending Test Test Name Order Date Thyroid Peroxidase (TPO) Ab 10/11/2024 Next Appt Details Follow Up: 2 Weeks, Reason: BP check History and Physical Notes * HPI (History of Present Illness) Category Sub-Category Detail Notes Category Not es HPI See OV 08/25/24. See also phone note on 10/05/24 regarding migraine meds/insurance coverage. Patient was also in [facility] on 10/10 related to her elevated BP and vision changes. No records received from [facility], only from [facility] and patient was still there at time of chart prep on 10/10. Krystina is here for an ER follow up. She stated she has been experiencing vision issues, including spots and haziness for a while, but was very prominent on Thursday, October 08, 2024. She noticed difficulty reading screens even with glasses, and any kind of light appeared streaky with a haze around it. On Thursday, October 09, 2024, she experienced sinus-like pain below her right lutheran, which she initially thought might be a migraine. She took her last Nurtec as a preventative measure. Her vision worsened, with the right eye completely losing vision and the left eye at about 50% capacity, prompting her to call in sick to work and went to the ER at [facility]. ER reported high blood pressure, with a reading of 225/146 on arrival. She has been on Labetalol 200mg BID, initially prescribed by her distance learning administrator for HTN, and was given Amlodipine and IV Labetolol in the emergency room and BP came down to 170's systolic. Carie potassium levels were noted to be low in the ER at [facility] at 3.1 and she was given a potassium tablet. Was given Compazine and Benadryl for trial treatment for ocular migraine without improvement. She was transferred to [facility] for proper opthamology consult needs. Labs done at the ER showed elevated TSH with normal T4. She denies history of thyroid issues. EKG showed NSR. Negative UA. CBC stable. Slightly elevated BUN/Creat. Potassium 3.1 CTA head/neck was normal. ER physician performed fluorescein stain exam that was normal. She also menioned she has experienced increased urination over the past few months, which she describes as excessive, despite not being with recent negative tests. She denies any dysuria, abdominal or pelvic pains, flank pains, n/v/d or constipation. Denies any vaginal discharge, hematuria, odor, itchiness or rash. She denies excessive caffiene of sugar intake, and mainly drinks water. Denies history of diabetes. Lab results from and [facility] on 10/10/2024: - Hemoglobin A1c: 4.9% - CBC: Normal - Urinalysis: Normal - Sodium: 4.3 - Potassium: 4.3 @ [facility] after oral potassium supplementation from 3.1 - TSH: High (greater than 20) - T4: Normal Examination Category Sub-Category Detail Notes Category Not es General Examination General appearance: alert, p leasant, well-nourished and in no acute distress Head: right sided tenderne ss on palpation to right temporal region Eyes: both eyes, extraocul ar movement intact (EOMI), pupils equal, round, reactive to light and accommodation, conjunctiva clear Neck / thyroid: carotid pulses are n ormal and without bruits, no jugular venous distention, normal thyroid size and shape without nodules, or tenderness Heart: regular rate and rhy thm without murmurs, gallops, clicks or rubs Lungs: clear to auscultatio n bilaterally, with good air movement and no rales, rhonchi or wheezes Neurologic: alert and oriented, normal exam with no motor or sensory deficits, neck is supple without rigidity or tremor Skin: warm and dry; good s kin turgor Extremities: normal extremity wit h no clubbing, cyanosis or edema Peripheral pulses: 2+ radial Psych: alert and oriented x 3, normal affect / mood Progress Notes * Rick PALMEROB:1990 ( 34 yo F)Acc No.[id number]:10/11/2024 Patient: Krystina Mckeon Provider: Ghislaine Benitez NP :1990 A ge:34 Y S ex:Female Date:10/11/2024 Phone: Address:[facility] [address], [place] [facility] Pcp:Arminda Lockwood Subjective: * Chief Complaints: * M igraine f/u and ER f/u * HPI: H PI: See OV 08/25/24. See also phone note on 10/05/24 regarding migraine meds/insurance coverage. Patient was also in [facility] on 10/10 related to her elevated BP and vision changes. No records received from [facility], only from [facility] a nd patient was still there at time of chart prep on 10/10. Krystina is here for an ER follow up. She stated she has been experiencing vision issues, including spots and haziness for a while, but was very prominent on Thursday, October 08, 2024. She noticed difficulty reading screens even with glasses, and any kind of light appeared streaky with a haze around it. On Thursday, October 09, 2024, she experienced sinus-like pain below her right lutheran, which she initially thought might be a migraine. She took her last Nurtec as a preventative measure. Her vision worsened, with the right eye completely losing vision and the left eye at about 50% capacity, prompting her to call in sick to work and went to the ER at [facility]. ER reported high blood pressure, with a reading of 225/146 on arrival. She has been on Labetalol 200mg BID, initially prescribed by her distance learning administrator for HTN, and was given Amlodipine and IV Labetolol in the emergency room and BP came down to 170's systolic. Carie potassium levels were noted to be low in the ER at [facility] at 3.1 and she was given a potassium tablet. Was given Compazine and Benadryl for trial treatment for ocular migraine without improvement. She was transferred to [facility] for proper opthamology consult needs. Labs done at the ER showed elevated TSH with normal T4. She denies history of thyroid issues. EKG showed NSR. Negative UA. CBC stable. Slightly elevated BUN/Creat. Potassium 3.1 CTA head/neck was normal. ER physician performed fluorescein stain exam that was normal. She also menioned she has experienced increased urination over the past few months, which she describes as excessive, despite not being with recent negative tests. She denies any dysuria, abdominal or pelvic pains, flank pains, n/v/d or constipation. Denies any vaginal discharge, hematuria, odor, itchiness or rash. She denies excessive caffiene of sugar intake, and mainly drinks water. Denies history of diabetes. Lab results from and [facility] on 10/10/2024: - Hemoglobin A1c: 4.9% - CBC: Normal - Urinalysis: Normal - Sodium: 4.3 - Potassium: 4.3 @ [facility] after oral potassium supplementation from 3.1 - TSH: High (greater than 20) - T4: Normal. * ROS: [facility]. * Medical History: Hormonal migraines during adolescence Overweight (resolved ) Otitis media, unspecified, right ear (resolved ) Other specified disorders of Eustachian tube, unspecified ear (resolved ) Acute pharyngitis, unspecified (resolved ) Acute tonsillitis, unspecified (resolved ) Allergic rhinitis, unspecified (resolved ) Chronic sinusitis, unspecified (resolved ) Other chronic diseases of tonsils and adenoids (resolved ) Primary amenorrhea (resolved ) Irregular menstruation, unspecified (resolved ) Other specified related conditions, first trimester (resolved ) Pelvic and perineal pain (resolved ) Generalized abdominal pain (resolved ) Hepatomegaly, not elsewhere classified (resolved ) Fever, unspecified (resolved ) Localized enlarged lymph nodes (resolved ) Encounter for test, result positive (resolved ) Encounter for supervision of normal , unspecified, first trimester (resolved ) state, gestational carrier (resolved ) Encounter for screening for COVID-19 (resolved ) Medical History Verified * Surgical History: tympanostomy tube placement Dilation and curettage 07/26/2020 Treadmill stress test 07/26/2020 Surgical History verified. * Family History: F ather: diagnosed with Hypertension. M other: diagnosed with Hypertension. * Social History: M igrated Social History: M igrated Social History: Number of cigarettes/day: None currently (only vapes),Marital status:,Frequency of drinks:Socially,Alcohol history:Currently drinks alcohol,Number of children:1,Tobacco history:Current every day smoker (only vapes now). Social History Verified. * Medications: T akingAlbuterol Sulfate 108 (90 Base) MCG/ACT Aerosol Powder Breath Activated 1 puff as needed Inhalation every 4 hrs Labetalol HCl 200 MG Tablet 1 tablet Orally Twice a day Taking Albuterol Sulfate 108 (90 Base) MCG/ACT Aerosol Powder Breath Activated 1 puff as needed Inhalation every 4 hrs Taking Labetalol HCl 200 MG Tablet 1 tablet Orally Twice a day Not-TakingamLODIPine Besylate 5 MG Tablet 1 tablet Orally Once a day Ubrelvy 50 MG Tablet 1 tablet Orally Once a day as needed, may take second dose at least 2 hours after first dose up to 4 tablets per day as neededNurtec 75 MG Tablet Disintegrating 1 tablet on the tongue and allow to dissolve Orally daily Medication List reviewed and reconciled with the patientNot-Taking amLODIPine Besylate 5 MG Tablet 1 tablet Orally Once a day Not-Taking Ubrelvy 50 MG Tablet 1 tablet Orally Once a day as needed, may take second dose at least 2 hours after first dose up to 4 tablets per day as neededNot-Taking Nurtec 75 MG Tablet Disintegrating 1 tablet on the tongue and allow to dissolve Orally daily Medication List reviewed and reconciled with the patient * Allergies: A ugmentin: diarrhea - Allergy - Onset Date 04/22/2022yesAllergies Verified. Objective: * Vitals: B P:158/100mm Hg, HR:69/min, Temp:97.4F, Oxygen sat %:98%, Ht: 61.00 in, Wt:172.1lbs, Wt-k.06 kg, Ht-cm: 154.94 cm, BMI:32.51Index, Body Surface Area: 1.83. * Examination: G eneral Examination: General appearance: a lert, pleasant, well-nourished and in no acute distress. Head: r ight sided tenderness on palpation to right temporal region. Eyes: b oth eyes, extraocular movement intact (EOMI), pupils equal, round, reactive to light and accommodation, conjunctiva clear. Neck / thyroid: c arotid pulses are normal and without bruits, no jugular venous distention, normal thyroid size and shape without nodules, or tenderness. Skin: w arm and dry; good skin turgor. Heart: r egular rate and rhythm without murmurs, gallops, clicks or rubs. Lungs: c lear to auscultation bilaterally, with good air movement and no rales, rhonchi or wheezes. Extremities: n ormal extremity with no clubbing, cyanosis or edema. Peripheral pulses: 2 + radial. Neurologic: a lert and oriented, normal exam with no motor or sensory deficits, neck is supple without rigidity or tremor. Psych: a lert and oriented x 3, normal affect / mood. ? Assessment: * Assessment: 1. E ssential (primary) hypertension - I10 (Primary) 2 . H ypertensive crisis - I16.9 3 . M igraine without status migrainosus, not intractable, unspecified migraine type - G43.909 4 . E levated TSH - R79.89 5 . V isual disturbance - H53.9 6 . A cute hypokalemia - E87.6 7 . U rinary frequency - R35.0 Plan: * Treatment: 2. M igraine without status migrainosus, not intractable, unspecified migraine type Start SUMAtriptan Succinate Tablet, 50 MG, 1 tablet as needed, may take second dose at least 2 hours after first dose up to 4 tablets per day as needed, Orally, Once a day, 90 days, 27, Refills 0.? Notes: - Migraine headache with vision loss and temporal/zygomatic region pain. (Potential temporal arteritis). - Prescribe prednisone taper for 9 days. - Trial triptan to use a s needed for abortive medication.- Follow-up on insurance coverage for [employer] vs.Ubrelvy coverage. Provided 2 samples of Ubrelvy, office is out of [facility]. 3. E levated TSH L AB: Thyroid Peroxidase (TPO) Ab Notes: - High TSH level noted in ER, potential autoimmune thyroid disorder with normal T4. - Order thyroid antibody (TPO). Monitor thyroid levels every 4-6 weeks if TPO is normal. 4. V isual disturbance Notes: - Vision disturbances possibly related to high blood pressure vs. migraine headache vs. arteritis vs. other causes. - C TA of the head showed no abnormalities. - Follow-up with chargeback specialist at [place]. Continue monitoring vision changes. Resolved with better BP control at this time. 5. U rinary frequency Notes: - Possible overactive bladder. No UTI (based on urinalysis in ER on (10/10) or diabetes based on normal urinalysis, blood glucose and A1C of 4.9% done in ER on (10/10). - Monitor symptoms and recommend pelvic floor therapy/exercises. - Consider urology referral if symptoms persist or worsen. * Follow Up: 2 Weeks (Reason: BP check) Billing Information: * Visit Code: [id number] OFFICE VISIT MODERATE. * Procedure Codes: * Sign off status: Completed true * Provider: Ghislaine Benitez NP Date: 0 10/11/2024 Generated for Luz stephen/Kathy/Jfitting on: 10/12/2024 01:47 PM CDT
--- OUTSIDE RECORDS SUMMARY | 2024-10-12 13:47 | XMS_ITS | CONTINUITY OF CARE DOCUMENT ---
Author Name zarinaharoldo zarinaharoldo Address Unknown Organization [facility] Address [address] [place] [address] Phone [phone] Care Team Providers Care Skid Wrapper Name Role Phone Toni Manuel MD Unavailable THEO FUCHS MD Unavailable THEO FUCHS MD Unavailable PROBLEMS Condition Status Date Provider Notes Hypertension active Toni Manuel MD Chest pain-type to be determined active Valerie Manuel MD Asthma active Toni Manuel MD Tobacco abuse active Toni Manuel MD Headache active Toni Manuel MD Abnormality of urination active Toni souza MD per pt ENCOUNTERS Date Type Provider Location Encounter Diag nosis 7 - 9 In-person encounter Office Visit Toni Manuel MD [facility] Office 0 - 0 In-person encounter Office Visit Toni Manuel MD [place] [facility] HypertensionAbnormality of urinationChest pain-type to be determinedHeadacheAsthmaTobacco abuse VITAL SIGNS Date Observation Value Provider blood pressure, diastolic 86 mm[Hg] Sa teran Horselea blood pressure, systolic 142 mm[Hg] Wayne barber Carmen pulse rate 80 /min Joanna Morales oxygen saturation, oximetry 98 % Joannara Morales respiratory rate E&M 18 /min Joanna Morales Body Mass Index (Ratio) 32.27 kg/m2 Adeline gonzales Horse[place] weight E&M 170.8 [lb_av] Joanna Horsey blood pressure, diastolic 97 mm[Hg] Ca cesar Heaton blood pressure, systolic 135 mm[Hg] Mik Heaton blood pressure, diastolic 115 mm[Hg] Kadi Rosenberg blood pressure, systolic 162 mm[Hg] Lorraine Rosenberg pulse rate 64 /min Kel hill oxygen saturation, oximetry 99 % Kel Rosenberg respiratory rate E&M 16 /min Rosalino Rosenberg Body Mass Index (Ratio) 31.06 kg/m2 Sharon Rosenberg weight E&M 164.4 [lb_av] Kel hoffman height E&M 61 [in_i] Kel Mccain sharamarvin ALLERGIES Allergy Name Onset Date Reaction Criticality Status AUGMENTIN High Criticality active HISTORY OF MEDICATION USE Medication Status Instructions Dates Provider Indications Com ments NORVASC 10 MG ORAL TABLET active one tablet each night 7 Toni Manuel MD increase the dose from 5 to 10 mg PO daily LOSARTAN POTASSIUM 50 MG ORAL TABLET active 1 daily Joanna Morales AMLODIPINE BESYLATE 5 MG ORAL TABLET completed ONE TAB. DAILY - 7 Toni Manuel MD LOSARTAN POTASSIUM 100 MG ORAL TABLET completed twice daily - 7 Joanna Morales SOCIAL HISTORY Date Observation Value Provider social history reviewed E&M revi ewed - no changes required Toni Manuel MD smoking/tobacco cess ation, patient education and counseling yes Joanna Morales number of years as a smoker 3 a Joanna Morales smoking history, tot al pack/day 0.5 Joanna Morales cigarette use yes Joanna Morales smoking status Current every day smoker S mariam Morales smoking status Current every day smoker C andfoster Heaton social history reviewed E&M revi ewed - no changes required Toni Manuel MD social history E&M Smoking Histo ry: P atfernanda currently smokes every day. P atfernanda has been counseled to quit. Toni Manuel MD smoking/tobacco cess ation, patient education and counseling yes Toni Manuel MD number of years as a smoker 3 a Kel Rosenberg smoking history, tot al pack/day 0.5 Kel Rosenberg cigarette use yes Kle horowitzmarvin smoking status Current every day smoker M Margot Rosenberg FUNCTIONAL STATUS Date Observation Value Provider periodic limb movement index absent (0) Bee Heaton FAMILY HISTORY Family Member Condition Father Family History of Hy pertension: INSURANCE PROVIDERS Payer name Policy type / Coverage type [employer] SELF PAY TREATMENT PLAN Date Name Performer Cardiology Faxed 1458:Orders: F VC - [id number] ([id number]) F RC - [id number] ([id number]) D LCO - 28536 ([id number]) Toni Manuel MD Cardiology Faxed 1458:Orders: C omplete Echo (CPT-60283) S TR - Routine (CPT-85992) Toni Manuel MD Cardiology Faxed 1458:24 hour urine collection for norepinephrine and epinephrine, normetanephrine (NMN) and metanephrine I f BP remains high, may double the dosage of Amlodipine B P today: 162/115 Her updated medication list for this problem includes: Amlodipine Besylate 5 Mg Tabs (Amlodipine besylate) ..... One tab. daily Losartan Potassium 100 Mg Oral Tabs (Losartan potassium) ..... Twice daily Toni Manuel MD Date Name Other STR - Routine Complete Echo Renal Artery Duplex DLCO - 13645 FRC - 50364 FVC - 65296 HISTORY OF PROCEDURES Procedure Date Procedure Name Provider Procedure Notes S tatus SNOMED-CT: 336036240 Smoking Cessation Counseling Toni Manuel MD completed Schedule Followup Toni washington MD in 6 months completed Stress EKG Toni esquivel MD completed EKG Toni esquivel MD completed SNOMED-CT: 652666840080385 Current Medications Documented Toni Manuel MD completed FVC - 45277 Toni esquivel MD completed FRC - 47708 Toni esquivel MD completed DLCO - 14119 Toni esquivel MD completed Schedule Followup Toni washington MD in a couple weeks, after testing is complete completed SNOMED-CT: 50237569 Physical Exam, Performed: Pulse Exam of Foot Toni Manuel MD completed SNOMED-CT: 783211212 Smoking Cessation Counseling Toni Manuel MD completed EKG Toni esquivel MD completed SNOMED-CT: 666928587335482 Current Medications Documented Toni Manuel MD completed
--- OUTSIDE RECORDS SUMMARY | 2024-10-12 13:47 | XMS_ITS | Encounter Summary ---
Author Organization [facility] Address [address] [place] [address] Care Team Providers Care Dry Transfer Man Name Role Phone Unavailable Primary Care Provider Unavailabl e Encounter Details Date Type Department Care Team (Late st Contact Info) Description 08/23/2019 Telephone [facility] Women's Health Maternal & Care [address] [place] [address] Sharon Craig Social History Tobacco Use Types Packs/Day Years Used Date Smoking Tobacco: Former Cigarettes Q uit: 01/23/2019 Smokeless Tobacco: Never Alcohol Use Standard Drinks/Week Comments Not Currently 0 (1 standard drink = 0.6 oz pur e alcohol) Comments Yes Sex and Gender Information Value Date Recorded Sex Assigned at Not on file 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 Answer Date of Assessment Author No 07/20/2019 8:23 PM Alexis Aldana RN * Is person blind or have serious difficulty seeing? Answer Date of Assessment Author No 07/20/2019 8:23 PM Alexis Aldana RN * Does person have serious difficulty walking/climbing stairs? Answer Date of Assessment Author No 07/20/2019 8:23 PM Alexis Aldana RN * Does person have difficulty dressing/bathing? Answer Date of Assessment Author No 07/20/2019 8:23 PM Alexis Aldana RN * Does person have difficulty doing errands alone? Answer Date of Assessment Author No 07/20/2019 8:23 PM Alexis Aldana RN documented as of this encounter Mental Status * Does person have difficulty concentrating/remembering/making decisions? Answer Entry Date Author No 07/20/2019 8:23 PM Alexis Aldana RN documented in this encounter Plan of Treatment Not on file documented as of this encounter Visit Diagnoses Not on filedocumented in this encounter
--- OUTSIDE RECORDS SUMMARY | 2024-10-12 13:47 | XMS_ITS | Encounter Summary ---
Author Organization [facility] Address [address] [place] [address] Phone Care Team Providers Care Awning Craftsperson Name Role Phone Lizandro Perry MD Primary Care Provider [phone] Encounter Details Date Type Department Care Team (Late st Contact Info) Description 10/10/2024 Ophth Exam [facility] Ophthalmology [address] [place] [id number] Ky Townsend MD [address] [place] [address] Social History Tobacco Use Types Packs/Day Years Used Date Smoking Tobacco: Former Cigarettes Smokeless Tobacco: Never Alcohol Use Standard Drinks/Week Comments Yes 0 [...] 09/18/2022 How often do you attend chur or druze services? Never 09/18/2022 Do you belong to any clubs o r organizations such as hoahaoism groups, unions, fraternal or athletic groups, or [...] place to sleep or slept in a long-term (including now)? No 09/18/2022 Housing Stability Vital [...] Diagnoses Not on filedocumented in this encounter Eye Exam Visual Acuity (Snellen - Linear) Right eye Left eye Near sc 20/30 20/20 Near cc 20/20-1 Slower OD Tonometry (Tonopen, 4:42 AM) Right eye Left eye Pressure 15 14 Pupils Dark Light Shape React APD Right eye 4 3 Round Brisk None Left eye 4 3 Round Brisk None Visual Narayanan Right eye Left eye Full Full Central Darkening of vision, OD Extraocular Movement Right eye Left eye Full Full Dilation Both eyes: 1.0% Mydriacyl, 2 .5% Phenylephrine @ 4:44 AM Color Right eye Left eye Ishihara 04/04 04/04 Slit Lamp Exam Right eye Left eye Lids/Lashes Normal Normal Conjunctiva/Sclera White and quiet White and rasheed et Cornea Clear Clear Anterior Chamber Deep and quiet Deep and quiet Iris Round and reactive Round and nara ctive Lens Clear Clear Anterior Vitreous Normal Normal Fundus Exam Right eye Left eye Disc Normal Normal C/D Ratio 0.1 0.1 Macula cotton wool spots cotton wool sp ots Vessels cotton wool spots, c opper wiring, no hemorrhage cotton wool spots, copper wiring, no hemorrhage Periphery Normal, no hemorrhage Normal, no hemorrhage Care Teams Awning Craftsperson Relationship Specialty Start Date End Date Lizandro Perry MD [address] [place] [address] PCP - General Pediatrics 09/24/20 documented as of this encounter
--- NOTE | 2024-10-12 14:23 | ECG_ITS ---
Test Date: 2024-10-12 14:44:24 Measurements Intervals [place] Rate: 56 P: -9 DE: 174 QRS: -18 QRSD: 104 T: -36 QT: 431 QTc: 418 Interpretive Statements SINUS BRADYCARDIA VOLTAGE CRITERIA FOR LVH [MEETS CRITERIA IN ONE OF: R(aVL), S(V1), R(V5), R(V5/V6)+S(V1)] MODERATE T-WAVE ABNORMALITY, CONSIDER ANTERIOR AND INFEROLATERAL ISCHEMIA [-0.1+ mV T-WAVE IN V3/V4] ABNORMAL ECG No previous ECG available for comparison Electronically Signed On 10-12-2024 15:17:35 CDT by Camacho Amaya M.D.
--- NOTE | 2024-10-12 14:34 | ED.GENADULT ---
HPI - General Adult General Chief complaint: Recheck/Abnormal Lab/Rx Stated complaint: blood pressure keeps dropping, sent by pcp Time Seen by Provider: 10/12/24 14:17 History of Present Illness HPI narrative: Patient is a 34-year-old female who presents ER for blood pressure issues. Seen at [facility] the several days ago for elevated blood pressures and difficulty seeing Pat right eye. She underwent imaging as well as blood testing. She was then transferred to [facility] to be evaluated by Ophthalmology. No formal diagnosis. Chronic hypertension. Takes labetalol. [facility] wanted her to start amlodipine however her PCP wants her to start a diuretic medication. She is driving and felt a little off so she went to her PCPs office today and had her blood pressure taken. Reports that when she went from sitting to standing her blood pressure drop and so she came here for further evaluation. No change in vision this time. No chest pain or shortness of breath. No numbness or weakness to an arm or leg. Denies headache. Blood pressure currently 160s over 100s which patient reports as chronic. Related Data Home Medications ?Medication ?Instructions ?Recorded ?Confirmed ?Last Taken ?Type labetalol 200 mg tablet 200 mg PO TID 09/18/20 11/20/21 10/18/20 History albuterol sulfate 90 mcg/actuation 2 puff inhalation PRN PRN 10/08/20 11/20/21 Unknown History aerosol inhaler Shortness Of Breath amlodipine 2.5 mg tablet 2.5 mg PO DAILY 10/08/20 11/20/21 10/18/20 History Allergies Allergy/AdvReac Type Severity Reaction Status Date / Time clavulanic acid Allergy Unknown Unknown Verified 11/20/21 10:53 [facility] Past Medical History Medical History HTN (hypertension) Liver cyst Obese abdomen Tobacco abuse Social History Social History Smoking packs per day: 0.25 Smoking cigarettes per day: 5.0 Years smoked: 5 Smoking pack-years: 1.25 Smoking status: Current some day smoker Tobacco type: cigarettes Additional smoking assessment comments: RARELY SMOKES , DOES VAPES DAILY Alcohol intake: never Substance use: never Substance use type: does not use Living arrangements: with family Occupation/Education: occupation Gender identity (if verbalized by the patient): Female Spiritual care concerns: No Exam Narrative: GENERAL: Well-appearing, well-nourished, and in no acute distress. HEAD: Normocephalic, atraumatic. EYES: PERRL and EOMI. ENT: Mucous membranes moist. CHEST: Clear to auscultation. No respiratory distress. HEART: Regular rate and rhythm. Normal peripheral pulses. ABDOMEN: Soft, nontender, nondistended. EXTREMITIES: Normal range of motion. No edema. SKIN: Warm, dry, no rash. NEURO: Alert and oriented x3. PSYCH: Normal mood and affect. Course Course Emergency Course: Spoke with Teresa at patient's PCP office. Patient is supposed to start on losartan in the morning. She has labetalol to take twice a day which is her typical medication. She is following up with Cardiology tomorrow. Labs unremarkable. Will give 1 dose hydralazine and patient will be discharged. Vital Signs Vital signs: Vital Signs Temperature 98.4 F 10/12/24 13:41 Pulse Rate 67 10/12/24 13:41 Respiratory Rate 17 10/12/24 13:41 Blood Pressure 194/124 H 10/12/24 13:41 Pulse Oximetry 100 10/12/24 13:41 Oxygen Delivery Room Air 10/12/24 13:41 Temperature 98.4 F 10/12/24 13:41 Pulse Rate 62 10/12/24 16:49 Respiratory Rate 14 10/12/24 16:49 Blood Pressure 193/126 H 10/12/24 16:49 Pulse Oximetry 100 10/12/24 16:49 Oxygen Delivery Room Air 10/12/24 13:41 Medical Decision Making Vital Signs Vital Signs: Vital Signs Temperature 98.4 F 10/12/24 13:41 Pulse Rate 67 10/12/24 13:41 Respiratory Rate 17 10/12/24 13:41 Blood Pressure 194/124 H 10/12/24 13:41 Pulse Oximetry 100 10/12/24 13:41 Oxygen Delivery Room Air 10/12/24 13:41 Temperature 98.4 F 10/12/24 13:41 Pulse Rate 62 10/12/24 16:49 Respiratory Rate 14 10/12/24 16:49 Blood Pressure 193/126 H 10/12/24 16:49 Pulse Oximetry 100 10/12/24 16:49 Oxygen Delivery Room Air 10/12/24 13:41 Lab Data 10/12/24 14:44 10/12/24 14:44 Labs: Lab Results 10/12/24 10/12/24 10/12/24 Range/Units 14:44 14:44 14:44 WBC 5.9 (4.5-10.0) K/mm3 RBC 3.80 L (4.2-5.4) M/mm3 Hgb 10.6 L (12.0-15.0) g/dL Hct 33.6 L (37.0-47.0) % MCV 88.4 (80-100) fl MCH 27.9 (26-34) pg MCHC 31.5 L (32-36) g/dl RDW 13.4 (11.5-14.5) % Plt Count 212 (150-375) k/mm3 MPV 11.0 H (7.4-10.4) fl Immature Gran % (Auto) 0.2 (0-0.5) % Neut % (Auto) 59.7 (45.5-73.1) % Lymph % (Auto) 31.7 (18.3-44.2) % [place] % (Auto) 6.6 (2.6-8.5) % Eos % (Auto) 0.9 (0-4.4) % Baso % (Auto) 0.9 (0.2-1.2) % Lymph # (Auto) 1.86 (0.9-3.2) K/mm3 [place] # (Auto) 0.4 (0.1-0.6) K/mm3 Eos # (Auto) 0.1 (0-0.3) K/mm3 Baso # (Auto) 0.1 (0.0-0.1) K/mm3 Abs Immat Gran (auto) 0.01 (0.00-0.031) K/mm3 Absolute Neuts (auto) 3.5 (1.3-6.7) K/mm3 Absolute Nucleated RBC 0.000 (0.0-0.012) K/mm3 Nucleated RBC % 0.0 (0.0-0.2) % Sodium Cancelled 141 Potassium Cancelled 4.0 Chloride Cancelled Carbon Dioxide Anion Gap BUN Creatinine Estim Creat Clear Calc Estimated GFR Glucose Calcium Total Bilirubin AST ALT Alkaline Phosphatase Troponin I (0.000-0.034) ng/mL Total Protein Albumin POC Urine HCG, Qual (Negative) 10/12/24 10/12/24 10/12/24 Range/Units 14:44 14:44 14:44 WBC (4.5-10.0) K/mm3 RBC (4.2-5.4) M/mm3 Hgb (12.0-15.0) g/dL Hct (37.0-47.0) % MCV (80-100) fl MCH (26-34) pg MCHC (32-36) g/dl RDW (11.5-14.5) % Plt Count (150-375) k/mm3 MPV (7.4-10.4) fl Immature Gran % (Auto) (0-0.5) % Neut % (Auto) (45.5-73.1) % Lymph % (Auto) (18.3-44.2) % [place] % (Auto) (2.6-8.5) % Eos % (Auto) (0-4.4) % Baso % (Auto) (0.2-1.2) % Lymph # (Auto) (0.9-3.2) K/mm3 [place] # (Auto) (0.1-0.6) K/mm3 Eos # (Auto) (0-0.3) K/mm3 Baso # (Auto) (0.0-0.1) K/mm3 Abs Immat Gran (auto) (0.00-0.031) K/mm3 Absolute Neuts (auto) (1.3-6.7) K/mm3 Absolute Nucleated RBC (0.0-0.012) K/mm3 Nucleated RBC % (0.0-0.2) % Sodium Potassium Chloride 106 Carbon Dioxide Cancelled 26 Anion Gap Cancelled 9 BUN Cancelled Creatinine Estim Creat Clear Calc Estimated GFR Glucose Calcium Total Bilirubin AST ALT Alkaline Phosphatase Troponin I (0.000-0.034) ng/mL Total Protein Albumin POC Urine HCG, Qual (Negative) 10/12/24 10/12/24 10/12/24 Range/Units 14:44 14:44 14:44 WBC (4.5-10.0) K/mm3 RBC (4.2-5.4) M/mm3 Hgb (12.0-15.0) g/dL Hct (37.0-47.0) % MCV (80-100) fl MCH (26-34) pg MCHC (32-36) g/dl RDW (11.5-14.5) % Plt Count (150-375) k/mm3 MPV (7.4-10.4) fl Immature Gran % (Auto) (0-0.5) % Neut % (Auto) (45.5-73.1) % Lymph % (Auto) (18.3-44.2) % [place] % (Auto) (2.6-8.5) % Eos % (Auto) (0-4.4) % Baso % (Auto) (0.2-1.2) % Lymph # (Auto) (0.9-3.2) K/mm3 [place] # (Auto) (0.1-0.6) K/mm3 Eos # (Auto) (0-0.3) K/mm3 Baso # (Auto) (0.0-0.1) K/mm3 Abs Immat Gran (auto) (0.00-0.031) K/mm3 Absolute Neuts (auto) (1.3-6.7) K/mm3 Absolute Nucleated RBC (0.0-0.012) K/mm3 Nucleated RBC % (0.0-0.2) % Sodium Potassium Chloride Carbon Dioxide Anion Gap BUN 21 H D Creatinine Cancelled 1.12 H Estim Creat Clear Calc Cancelled 60 Estimated GFR Cancelled Glucose Calcium Total Bilirubin AST ALT Alkaline Phosphatase Troponin I (0.000-0.034) ng/mL Total Protein Albumin POC Urine HCG, Qual (Negative) 10/12/24 10/12/24 10/12/24 Range/Units 14:44 14:44 14:44 WBC (4.5-10.0) K/mm3 RBC (4.2-5.4) M/mm3 Hgb (12.0-15.0) g/dL Hct (37.0-47.0) % MCV (80-100) fl MCH (26-34) pg MCHC (32-36) g/dl RDW (11.5-14.5) % Plt Count (150-375) k/mm3 MPV (7.4-10.4) fl Immature Gran % (Auto) (0-0.5) % Neut % (Auto) (45.5-73.1) % Lymph % (Auto) (18.3-44.2) % [place] % (Auto) (2.6-8.5) % Eos % (Auto) (0-4.4) % Baso % (Auto) (0.2-1.2) % Lymph # (Auto) (0.9-3.2) K/mm3 [place] # (Auto) (0.1-0.6) K/mm3 Eos # (Auto) (0-0.3) K/mm3 Baso # (Auto) (0.0-0.1) K/mm3 Abs Immat Gran (auto) (0.00-0.031) K/mm3 Absolute Neuts (auto) (1.3-6.7) K/mm3 Absolute Nucleated RBC (0.0-0.012) K/mm3 Nucleated RBC % (0.0-0.2) % Sodium Potassium Chloride Carbon Dioxide Anion Gap BUN Creatinine Estim Creat Clear Calc Estimated GFR 56 L Glucose Cancelled 87 Calcium Cancelled 9.1 Total Bilirubin Cancelled AST ALT Alkaline Phosphatase Troponin I (0.000-0.034) ng/mL Total Protein Albumin POC Urine HCG, Qual (Negative) 10/12/24 10/12/24 10/12/24 Range/Units 14:44 14:44 14:44 WBC (4.5-10.0) K/mm3 RBC (4.2-5.4) M/mm3 Hgb (12.0-15.0) g/dL Hct (37.0-47.0) % MCV (80-100) fl MCH (26-34) pg MCHC (32-36) g/dl RDW (11.5-14.5) % Plt Count (150-375) k/mm3 MPV (7.4-10.4) fl Immature Gran % (Auto) (0-0.5) % Neut % (Auto) (45.5-73.1) % Lymph % (Auto) (18.3-44.2) % [place] % (Auto) (2.6-8.5) % Eos % (Auto) (0-4.4) % Baso % (Auto) (0.2-1.2) % Lymph # (Auto) (0.9-3.2) K/mm3 [place] # (Auto) (0.1-0.6) K/mm3 Eos # (Auto) (0-0.3) K/mm3 Baso # (Auto) (0.0-0.1) K/mm3 Abs Immat Gran (auto) (0.00-0.031) K/mm3 Absolute Neuts (auto) (1.3-6.7) K/mm3 Absolute Nucleated RBC (0.0-0.012) K/mm3 Nucleated RBC % (0.0-0.2) % Sodium Potassium Chloride Carbon Dioxide Anion Gap BUN Creatinine Estim Creat Clear Calc Estimated GFR Glucose Calcium Total Bilirubin 0.4 AST Cancelled 27 ALT Cancelled 17 Alkaline Phosphatase Cancelled Troponin I (0.000-0.034) ng/mL Total Protein Albumin POC Urine HCG, Qual (Negative) 10/12/24 10/12/24 10/12/24 Range/Units 14:44 14:44 14:44 WBC (4.5-10.0) K/mm3 RBC (4.2-5.4) M/mm3 Hgb (12.0-15.0) g/dL Hct (37.0-47.0) % MCV (80-100) fl MCH (26-34) pg MCHC (32-36) g/dl RDW (11.5-14.5) % Plt Count (150-375) k/mm3 MPV (7.4-10.4) fl Immature Gran % (Auto) (0-0.5) % Neut % (Auto) (45.5-73.1) % Lymph % (Auto) (18.3-44.2) % [place] % (Auto) (2.6-8.5) % Eos % (Auto) (0-4.4) % Baso % (Auto) (0.2-1.2) % Lymph # (Auto) (0.9-3.2) K/mm3 [place] # (Auto) (0.1-0.6) K/mm3 Eos # (Auto) (0-0.3) K/mm3 Baso # (Auto) (0.0-0.1) K/mm3 Abs Immat Gran (auto) (0.00-0.031) K/mm3 Absolute Neuts (auto) (1.3-6.7) K/mm3 Absolute Nucleated RBC (0.0-0.012) K/mm3 Nucleated RBC % (0.0-0.2) % Sodium Potassium Chloride Carbon Dioxide Anion Gap BUN Creatinine Estim Creat Clear Calc Estimated GFR Glucose Calcium Total Bilirubin AST ALT Alkaline Phosphatase 61 Troponin I < 0.012 (0.000-0.034) ng/mL Total Protein Cancelled 8.0 Albumin Cancelled 4.5 POC Urine HCG, Qual (Negative) 10/12/24 Range/Units 14:56 WBC (4.5-10.0) K/mm3 RBC (4.2-5.4) M/mm3 Hgb (12.0-15.0) g/dL Hct (37.0-47.0) % MCV (80-100) fl MCH (26-34) pg MCHC (32-36) g/dl RDW (11.5-14.5) % Plt Count (150-375) k/mm3 MPV (7.4-10.4) fl Immature Gran % (Auto) (0-0.5) % Neut % (Auto) (45.5-73.1) % Lymph % (Auto) (18.3-44.2) % [place] % (Auto) (2.6-8.5) % Eos % (Auto) (0-4.4) % Baso % (Auto) (0.2-1.2) % Lymph # (Auto) (0.9-3.2) K/mm3 [place] # (Auto) (0.1-0.6) K/mm3 Eos # (Auto) (0-0.3) K/mm3 Baso # (Auto) (0.0-0.1) K/mm3 Abs Immat Gran (auto) (0.00-0.031) K/mm3 Absolute Neuts (auto) (1.3-6.7) K/mm3 Absolute Nucleated RBC (0.0-0.012) K/mm3 Nucleated RBC % (0.0-0.2) % Sodium Potassium Chloride Carbon Dioxide Anion Gap BUN Creatinine Estim Creat Clear Calc Estimated GFR Glucose Calcium Total Bilirubin AST ALT Alkaline Phosphatase Troponin I (0.000-0.034) ng/mL Total Protein Albumin POC Urine HCG, Qual Negative (Negative) Imaging Data Radiologist's impression: ITS Impressions Chest X-Ray 10/12/24 15:27 IMPRESSION: No focal infiltrate or effusion. ECG Data EKG #1: ECG completion date: 10/12/24 ECG completion time: 14:44 EKG Interpretation: bradycardia (56), sinus rhythm, non-specific ST changes, normal QRS, left axis and other (LVH) Discharge Plan Discharge Clinical Impression: Uncontrolled hypertension Patient Disposition: Home Condition: Stable Instructions: Hypertension (ED) Additional Instructions: Please return to the emergency department if you develop severe and persistent chest pain, difficulty breathing, dizziness, leg swelling or if you are coughing up blood as these can be signs of a medical emergency. Please call your doctor for a follow up appointment to determine the need for further testing. dining room tables set up attendant the olmesartan that was prescribed by your PCP and begin the medication in the morning. Patient Language: Sammarinese Prescriptions: No Action labetalol 200 mg tablet 200 mg PO TID amlodipine 2.5 mg tablet 2.5 mg PO DAILY albuterol sulfate 90 mcg/actuation HFA aerosol inhaler 2 puff INHALATION PRN PRN (Reason: Shortness Of Breath) Follow-up/Referrals: Maddie Gaspar MD [Physician] - 1 Day Mark,HARSHAL Stephens [Primary Care Provider] - 1 Week
[2024-10-12 14:51] LABS: Basophils Absolute Auto 0.1 K/mm3 (0.0-0.1); Basophils Percent Auto 0.9 % (0.2-1.2); Eosinophils Absolute Auto 0.1 K/mm3 (0-0.3); Eosinophils Percent Auto 0.9 % (0-4.4); Hematocrit 33.6 % (37.0-47.0); Hemoglobin 10.6 g/dL (12.0-15.0); Immature Granulocyte Absolute 0.01 K/mm3 (0.00-0.031); Immature Granulocyte Percent A 0.2 % (0-0.5); Lymphocytes Absolute Auto 1.86 K/mm3 (0.9-3.2); Lymphocytes Percent Auto 31.7 % (18.3-44.2); Mean Corpuscular HGB Conc 31.5 g/dl (32-36); Mean Corpuscular Hemoglobin 27.9 pg (26-34); Mean Corpuscular Volume 88.4 fl (80-100); Monocytes Absolute Auto 0.4 K/mm3 (0.1-0.6); Monocytes Percent Auto 6.6 % (2.6-8.5); Neutrophils Absolute Auto 3.5 K/mm3 (1.3-6.7); Neutrophils Percent Auto 59.7 % (45.5-73.1); Platelet Count Result 212 k/mm3 (150-375); Red Cell Distribution Width 13.4 % (11.5-14.5); White Blood Count 5.9 K/mm3 (4.5-10.0)
--- OUTSIDE RECORDS SUMMARY | 2024-10-12 14:51 | XMS_ITS | Referral Summary ---
Author Organization [facility] [place] [address] [facility] [address] Address [address] [place] [address] Care Team Providers Care Vamp Stitcher Name Role Phone Lizandro Perry MD Primary Care Provider Encounters Date Type Department Care Team Description 10/10/2024 Telephone [facility] Ophthalmology [address] [place] [phone] Ky Townsend MD 10/10/2024 Ophth Exam [facility] Ophthalmology [address] [place] [phone] Ky Townsend MD 10/10/2024 3:26 AM CDT - 10/10/2024 11:39 AM CDT Emergency [facility] Emergency Department [address] [place] [phone] Jose C Morales MD Zanaboni, Allison Janine, MD Blurred vision (Primary Dx); Secondary hypertension Discharge Disposition: Discharge to home or self care 10/10/2024 Telephone [facility] Ophthalmology [address] [place] [phone] Ky Townsend MD from Last 3 [...] 200 tid Was last admitted 09/26-09/29 at [facility] for headaches and worsening hypertension. Was diagnosed with superimposed preeclampsia with UPC 0.35. Severe features ruled out and plan was made for 37wk delivery at that time. -Given persistent headache today for now 2 days, recommended that she present to triage at [facility] (her planned delivery hospital). Would recommend delivery if headache fails to resolve. Spoke with Dr. Warren's nurse. 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 [...] [x] Blue Team Referring Provider: Cristine Warren [phone] [] or Medicare Insurance [x] Dating Criteria: [...] [] MOC: [] Method of feeding: [] Biomedical Analytical Scientist: [] PP Depression Discussed: Snoring 01/16/2022 Uncomplicated asthma 04/23/2021 Nontoxic goiter, unspecified 01/30/2021 History of Left atrial enlargement 12/31/2020 Overview (07/24/2022): Echocardiogram 02/10/2017 EF 70%, mild concentric LVH, hyperdynamic LV function, diastolic dysfunction, no regional wall motion abnormalities, moderate left atrial enlargement, mild MS- copy scanned into Media Echo 07/22/22: Left [...] any clubs o r organizations such as spiritism groups, unions, fraternal or athletic groups, or [...] place to sleep or slept in a fdc (including now)? No 09/18/2022 Housing Stability Vital [...] ORDERABLES Final Res ult Performing Organization Address [facility]/ZIP Co de Phone Number [facility] [email or web address] [place] [address] * POCT Rapid HIV Antibody Community Screening-Mandi Eligible (10/10/2024 6:23 AM CDT) [facility] Rapid HIV, POC Negative Negative Lot Number [id number] QC Control Line Acceptable Blood 10/10/2024 6:23 AM CDT us Jose C Morales MD POINT OF CARE TEST ORDERABLES Final Result * Troponin I high-sensitivity series (baseline, 2hr, 4hr, 6hr) (10/10/2024 4:16 AM CDT) [facility] Trop I hs <4 <=17 ng/L Comment: Interpretive Data For further hscTnI resources including the diagnostic algorithm and an aid in interpretation, copy and paste this link: [email or web address].[email or web address].org/[email or web address] Current Interpretive Data last revised 2019. Blood 10/10/2024 4:16 AM CDT 10/10/2024 4:27 AM CDT us Abbe Moncada MD LAB BLOOD ORDERABLES Final Res ult Performing Organization Address [facility] Co de Phone Number [facility] [place] [address] * eGFR (10/10/2024 4:16 AM CDT) [facility] eGFR 73 >=60 mL/min/1. 73 m2 [...] MD LAB BLOOD ORDERABLES Final Res ult [facility] [place] [address] * Differential, auto (10/10/2024 4:16 AM CDT) Neutrophil abs 6.30 1.50 - 6.50 K/cumm Imm gran abs 0.03 0.00 - 0.10 K/cumm [facility] Lymphocyte abs 1.72 0.80 - 3.30 K/cumm [facility] Monocyte abs 0.38 0.20 - 0.80 K/cumm [facility] Eosinophil abs 0.06 0.00 - 0.50 K/cumm [facility] Basophil abs 0.02 0.00 - 0.10 K/cumm [facility] Neutrophil pct 74.0 % [facility] Comment: Interpretive Data Percent cell count reference ranges are not reported, since discordance with absolute values may lead to misinterpretation of CBC data. Current Interpretive Data was last revised on 2017. Imm gran pct 0.4 % [facility] Comment: Interpretive Data Percent cell count reference ranges are not reported, since discordance with absolute values may lead to misinterpretation of CBC data. Current Interpretive Data was last revised on 2017. Lymphocyte pct 20.2 % [facility] Comment: Interpretive Data Percent cell count reference ranges are not reported, since discordance with absolute values may lead to misinterpretation of CBC data. Current Interpretive Data was last revised on 2017. Monocyte pct 4.5 % [facility] Comment: Interpretive Data Percent cell count reference ranges are not reported, since discordance with absolute values may lead to misinterpretation of CBC data. Current Interpretive Data was last revised on 2017. Eosinophil pct 0.7 % [facility] Comment: Interpretive Data Percent cell count reference ranges are not reported, since discordance with absolute values may lead to misinterpretation of CBC data. Current Interpretive Data was last revised on 2017. Basophil pct 0.2 % [facility] Comment: Interpretive Data Percent cell count reference ranges are not reported, since discordance with absolute values may lead to misinterpretation of CBC data. Current Interpretive Data was last revised on 2017. Blood 10/10/2024 4:16 AM CDT 10/10/2024 4:27 AM CDT us bAbe Moncada MD LAB BLOOD ORDERABLES Final Res ult [facility] [place] [address] * Urinalysis reflex to microscopic (10/10/2024 4:16 AM CDT) Color, ur Straw Yellow Clarity, ur Clear Clear [facility] Specific gravity, ur 1.013 1.003 - 1.030 [facility] pH, urine 7.0 [facility] Comment: Interpretive Data U rine pH is affected by diet, medications, systemic acid-base disturbances, and renal tubular function. pH may affect urinary stone formation. For example, urine pH below 6.0 may help reduce the tendency for calcium phosphate stones and pH greater than 6.0 may reduce the tendency for uric acid stone formation. Source: ViaSat Current Interpretive Data was last revised on 2017 Protein, ur ql Negative Negative [facility] Glucose, ur ql Negative Negative [facility] Ketones, ur Negative Negative [facility] Bilirubin, ur Negative Negative [facility] Blood, ur Negative Negative [facility] Urobilinogen, ur <2.0 <2.0 mg/dL [facility] Nitrite, ur Negative Negative [facility] Leukocyte esterase, ur Negative Negative [facility] UA reflex comment Reflex conditions for microscopic UA not met. [facility] Urine 10/10/2024 4:16 AM CDT 10/10/2024 4:21 AM CDT Abbe Moncada MD LAB URINE ORDERABLES Final Res ult Performing Organization Address [facility]/ZIP Co de Phone Number [facility] [email or web address] [place] [address] * (ABNORMAL) CBC with auto differential (10/10/2024 4:16 AM CDT) WBC 8.51 3.80 - 9.90 K/cumm Hgb 12.0 11.9 - 15.5 g/dL [facility] Hct 35.0(L) 35.6 - 45.5 % [facility] Plt 246 150 - 400 K/cumm [facility] MPV 11.3 9.1 - 12.3 fL [facility] RBC 4.23 3.90 - 5.20 M/cumm [facility] MCV 82.7 81.3 - 96.4 fL [facility] MCH 28.4 27.1 - 33.3 pg [facility] MCHC 34.3 32.3 - 35.7 g/dL [facility] RDW CV 13.1 11.1 - 14.9 % [facility] RDW SD 39.4 35.7 - 48.1 fL [facility] NRBC abs 0.00 0.00 - 0.01 K/cumm [facility] Blood 10/10/2024 4:16 AM CDT 10/10/2024 4:27 AM CDT Abbe Moncada MD LAB BLOOD ORDERABLES Final Res ult Performing Organization Address City/[facility]/ZIP Co de Phone Number [facility] [place] [address] * (ABNORMAL) TSH (10/10/2024 4:16 AM CDT) Pathologist [facility] Thyroid Stimulating Hormone 16.20(H) 0.30 - 4.20 mcIUnit/mL Blood Venous blood specimen / Unknown 10/10/2024 4:16 AM CDT 10/10/2024 4:27 AM CDT Abbe Moncada MD LAB BLOOD ORDERABLES Final Res ult Performing Organization Address [facility] de Phone Number [facility] [place] [address] * T4, free (10/10/2024 4:16 AM CDT) [facility] Free T4 1.57 0.90 - 1.70 ng/dL Blood 10/10/2024 4:16 AM CDT 10/10/2024 4:27 AM CDT Result [facility] Jose C Rodriguez MD LAB BLOOD ORDERABLES Final Result Performing Organization Address [facility] de Phone Number [facility] [email or web address] [address] * Hemoglobin A1c (10/10/2024 4:16 AM CDT) [facility] Hgb A1C 4.9 4.0 - 5.6 % Estimated Average Glucose 94 mg/dL [facility] Comment: The ADA recommends reporting an estimated [...] Rodriguez MD LAB BLOOD ORDERABLES Final Result [facility] Department [place] [address] * Comprehensive metabolic panel (10/10/2024 4:16 AM CDT) Sodium 145 135 - 145 mmol/L Potassium, pl 4.3 3.3 - 4.9 mmol/L [facility] Chloride 108 97 - 110 mmol/L [facility] CO2 24 22 - 32 mmol/L [facility] Anion gap 13 2 - 15 mmol/L [facility] BUN 16 6 - 25 mg/dL [facility] Creatinine 1.04 0.60 - 1.10 mg/dL [facility] Glucose 103 70 - 199 mg/dL [facility] Comment: Interpretive Data Fasting glucose >/= 126 [...] 2022. Calcium 9.9 8.5 - 10.3 mg/dL [facility] Bilirubin, total 0.3 0.1 - 1.2 mg/dL [facility] Protein, pl 8.0 6.5 - 8.5 g/dL [facility] Albumin 4.8 3.5 - 5.0 g/dL [facility] Alk phos 86 40 - 130 Units/L [facility] ALT 10 7 - 45 Units/L [facility] AST 25 10 - 45 Units/L [facility] Blood Venous blood specimen / Unknown 10/10/2024 4:16 AM CDT 10/10/2024 4:27 AM CDT us Abbe Moncada MD LAB BLOOD ORDERABLES Final Res ult [facility] Department [place] [address] * POCT hCG, urine (10/10/2024 4:14 AM CDT) HCG, ur, POC Negative Negative Lot Number [id number] QC Backgroud Clear Acceptable QC Control Line Acceptable Urine 10/10/2024 4:14 AM CDT Result [facility] Abbe Moncada MD POINT OF CARE TEST ORDERABLES Final Result * ECG 12-LEAD (10/10/2024 4:06 AM CDT) Narrative [facility] - 10/10/2024 4:06 AM CDT Jose [...] MD ECG ORDERABLES Final Result [facility] * Neuro CT Outside Consult (10/10/2024 4:04 [...] images may or may not represent the muckleshoot source data set and thus may contain [...] IMAGING STUDY STUDY INITIALLY PERFORMED: 10-09-24 at [facility]. TYPE OF STUDY: Multiple CTA [...] narrowing or filling defects are identified. The [id number] is complete. The anterior and middle cerebral arteries are normal. The vertebral arteries are codominant. The basilar artery is normal. The posterior cerebral arteries are normal. There is no aneurysm or vascular malformation identified. Procedure Note Fausto Nuno MD PhD - 10/10/2024 EXAMINATION: RADIOLOGY CONSULTATION ON OUTSIDE IMAGING STUDY STUDY INITIALLY PERFORMED: 10-09-24 at [facility]. TYPE OF STUDY: Multiple CTA [...] narrowing or filling defects are identified. The [id number] is complete. The anterior and middle cerebral [...] images may or may not represent the [place] source data set and thus may contain [...] images may or may not represent the [place] source data set and thus may contain [...] IMAGING STUDY STUDY INITIALLY PERFORMED: 10-09-24 at [facility]. TYPE OF STUDY: Multiple CTA [...] narrowing or filling defects are identified. The [id number] is complete. The anterior and middle cerebral arteries are normal. The vertebral arteries are codominant. The basilar artery is normal. The posterior cerebral arteries are normal. There is no aneurysm or vascular malformation identified. Procedure Note Fausto Nuno MD PhD - 10/10/2024 EXAMINATION: RADIOLOGY CONSULTATION ON OUTSIDE IMAGING STUDY STUDY INITIALLY PERFORMED: 10-09-24 at [facility]. TYPE OF STUDY: Multiple CTA [...] narrowing or filling defects are identified. The [id number] is complete. The anterior and middle cerebral [...] images may or may not represent the [place] source data set and thus may contain [...] Most Recently Relevant to Health Maintenance Insurance [facility] Advance Directives For more information, please contact: [phone] * Full Code (Latest Code Status on File) Date Activated Date Inactivated Comments 09/26/2022 6:05 PM 09/29/2022 3:54 PM * Full Code Date Activated Date Inactivated Comments 09/17/2022 2:18 PM 09/20/2022 3:42 PM Care Teams Vamp Stitcher Relationship Specialty Start Date End Date Lizandro Perry MD [address] [place] [address] PCP - General Pediatrics 09/24/20
--- OUTSIDE RECORDS SUMMARY | 2024-10-12 14:51 | XMS_ITS | Clinical Summary ---
Author Organization [facility] [place] [address] [facility] [address] Address [address] [place] [address] Care Team Providers Care Waterfront Director Name Role Phone Lizandro Perry MD Primary [...] 200 tid Was last admitted 09/26-09/29 at [facility] for headaches and worsening hypertension. Was diagnosed with superimposed preeclampsia with UPC 0.35. Severe features ruled out and plan was made for 37wk delivery at that time. -Given persistent headache today for now 2 days, recommended that she present to triage at [facility] (her planned delivery hospital). Would recommend delivery if headache fails to resolve. Spoke with Dr. Warren's nurse. 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 [...] [x] Blue Team Referring Provider: Cristine Warren [phone] [] or Medicare Insurance [x] Dating Criteria: [...] [] MOC: [] Method of feeding: [] Stock Shaper: [] PP Depression Discussed: Snoring 01/16/2022 Uncomplicated asthma 04/23/2021 Nontoxic goiter, unspecified 01/30/2021 History of Left atrial enlargement 12/31/2020 Overview (07/24/2022): Echocardiogram 02/10/2017 EF 70%, mild concentric LVH, hyperdynamic LV function, diastolic dysfunction, no regional wall motion abnormalities, moderate left atrial enlargement, mild ND- copy scanned into Media Echo 07/22/22: Left [...] CDT - 10/10/2024 11:39 AM CDT Emergency [facility] Emergency Department [address] [place] [address] Jose C Morales MD Zanaboni, Allison Janine, MD Blurred vision (Primary Dx); Secondary hypertension Discharge Disposition: Discharge to home or self care 10/10/2024 Telephone [facility] [address] [place] [phone] Ky Townsend MD 10/10/2024 Ophth Exam [facility] [address] [place] [phone] Ky Townsend MD 10/10/2024 Telephone [facility] [address] [place] [address] 1[address] [place] [phone] Ky Townsend MD from Last 3 Months [...] often do you attend chur ch or taoist services? Never 09/18/2022 Do you belong to any clubs o r organizations such as presybeterian groups, unions, fraternal or athletic groups, or [...] place to sleep or slept in a usp (including now)? No 09/18/2022 Housing Stability Vital [...] BOY GERMANIA [address], MD Complications:None Delivery Location:[facility] ([facility]) Last Filed Vital Signs [...] ORDERABLES Final Res ult RAFAL CASTAÑEDA [facility] [place] [address] * POCT Rapid HIV Antibody Community Screening-Mandi Eligible (10/10/2024 6:23 AM CDT) Rapid HIV, POC Negative Negative Lot Number [id number] QC Control Line Acceptable Blood 10/10/2024 6:23 [...] MD LAB BLOOD ORDERABLES Final Res ult [facility] [place] [address] * eGFR (10/10/2024 4:16 AM CDT) eGFR [...] MD LAB BLOOD ORDERABLES Final Res ult [facility] [place] [address] * Differential, auto (10/10/2024 4:16 AM CDT) Neutrophil abs 6.30 1.50 - 6.50 K/cumm Imm gran abs 0.03 0.00 - 0.10 K/cumm [facility] Lymphocyte abs 1.72 0.80 - 3.30 K/cumm [facility] Monocyte abs 0.38 0.20 - 0.80 K/cumm [facility] Eosinophil abs 0.06 0.00 - 0.50 K/cumm [facility] Basophil abs 0.02 0.00 - 0.10 K/cumm [facility] Neutrophil pct 74.0 % [facility] Comment: Interpretive Data Percent cell count reference ranges are not reported, since discordance with absolute values may lead to misinterpretation of CBC data. Current Interpretive Data was last revised on 2017. Imm gran pct 0.4 % [facility] Comment: Interpretive Data Percent cell count reference ranges are not reported, since discordance with absolute values may lead to misinterpretation of CBC data. Current Interpretive Data was last revised on 2017. Lymphocyte pct 20.2 % [facility] Comment: Interpretive Data Percent cell count reference ranges are not reported, since discordance with absolute values may lead to misinterpretation of CBC data. Current Interpretive Data was last revised on 2017. Monocyte pct 4.5 % [facility] Comment: Interpretive Data Percent cell count reference ranges are not reported, since discordance with absolute values may lead to misinterpretation of CBC data. Current Interpretive Data was last revised on 2017. Eosinophil pct 0.7 % [facility] Comment: Interpretive Data Percent cell count reference ranges are not reported, since discordance with absolute values may lead to misinterpretation of CBC data. Current Interpretive Data was last revised on 2017. Basophil pct 0.2 % [facility] Comment: Interpretive Data Percent cell count reference ranges are not reported, since discordance with absolute values may lead to misinterpretation of CBC data. Current Interpretive Data was last revised on 2017. Blood 10/10/2024 4:16 AM CDT 10/10/2024 4:27 AM CDT Abbe Moncada MD LAB BLOOD ORDERABLES Final Res ult [facility] [place] [address] * Urinalysis reflex to microscopic (10/10/2024 4:16 AM CDT) Color, ur Straw Yellow Clarity, ur Clear Clear [facility] Specific gravity, ur 1.013 1.003 - 1.030 [facility] pH, urine 7.0 [facility] Comment: Interpretive Data U rine pH is affected by diet, medications, systemic acid-base disturbances, and renal tubular function. pH may affect urinary stone formation. For example, urine pH below 6.0 may help reduce the tendency for calcium phosphate stones and pH greater than 6.0 may reduce the tendency for uric acid stone formation. Source: [facility] Current Interpretive Data was last revised on 2017 Protein, ur ql Negative Negative [facility] Glucose, ur ql Negative Negative [facility] Ketones, ur Negative Negative [facility] Bilirubin, ur Negative Negative [facility] Blood, ur Negative Negative [facility] Urobilinogen, ur <2.0 <2.0 mg/dL [facility] Nitrite, ur Negative Negative [facility] Leukocyte esterase, ur Negative Negative [facility] UA reflex comment Reflex conditions for microscopic UA not met. [facility] Urine 10/10/2024 4:16 AM CDT 10/10/2024 4:21 AM CDT Abbe Moncada MD LAB URINE ORDERABLES Final Res ult Performing Organization Address [facility] Co de Phone Number [facility] Department [place] [address] * (ABNORMAL) CBC with auto differential (10/10/2024 4:16 AM CDT) WBC 8.51 3.80 - 9.90 K/cumm Hgb 12.0 11.9 - 15.5 g/dL [facility] Hct 35.0(L) 35.6 - 45.5 % [facility] Plt 246 150 - 400 K/cumm [facility] MPV 11.3 9.1 - 12.3 fL [facility] RBC 4.23 3.90 - 5.20 M/cumm [facility] MCV 82.7 81.3 - 96.4 fL [facility] MCH 28.4 27.1 - 33.3 pg [facility] MCHC 34.3 32.3 - 35.7 g/dL [facility] RDW CV 13.1 11.1 - 14.9 % [facility] RDW SD 39.4 35.7 - 48.1 fL [facility] NRBC abs 0.00 0.00 - 0.01 K/cumm [facility] Blood 10/10/2024 4:16 AM CDT 10/10/2024 4:27 AM CDT us Abbe Moncada MD LAB BLOOD ORDERABLES Final Res ult Performing Organization Address City/[facility]/ZIP Co de Phone Number [facility] [place] [address] * (ABNORMAL) TSH (10/10/2024 4:16 AM CDT) Pathologist [facility] Thyroid Stimulating Hormone 16.20(H) 0.30 - 4.20 mcIUnit/mL Blood Venous blood specimen / Unknown 10/10/2024 4:16 AM CDT 10/10/2024 4:27 AM CDT us Abbas Ali Moncada MD LAB BLOOD ORDERABLES Final Res ult [facility] [place] [address] * T4, free (10/10/2024 4:16 AM CDT) Pathologist [facility] Free T4 1.57 0.90 - 1.70 ng/dL Blood 10/10/2024 4:16 AM CDT 10/10/2024 4:27 AM CDT Jose C Rodriguez MD LAB BLOOD ORDERABLES Final Result Performing Organization Address [facility] de Phone Number [facility] [place] [address] * Hemoglobin A1c (10/10/2024 4:16 AM CDT) [facility] Hgb A1C 4.9 4.0 - 5.6 % Estimated Average Glucose 94 mg/dL [facility] Comment: The ADA recommends reporting an [...] BLOOD ORDERABLES Final Result Performing Organization Address [facility]/[place]IP [place] [address] * Comprehensive metabolic panel (10/10/2024 4:16 AM CDT) [facility] Sodium 145 135 - 145 mmol/L Potassium, pl 4.3 3.3 - 4.9 mmol/L [facility] Chloride 108 97 - 110 mmol/L [facility] CO2 24 22 - 32 mmol/L [facility] Anion gap 13 2 - 15 mmol/L [facility] BUN 16 6 - 25 mg/dL [facility] Creatinine 1.04 0.60 - 1.10 mg/dL [facility] Glucose 103 70 - 199 mg/dL [facility] Comment: Interpretive Data Fasting glucose >/= [...] 2022. Calcium 9.9 8.5 - 10.3 mg/dL [facility] Bilirubin, total 0.3 0.1 - 1.2 mg/dL [facility] Protein, pl 8.0 6.5 - 8.5 g/dL [facility] Albumin 4.8 3.5 - 5.0 g/dL [facility] Alk phos 86 40 - 130 Units/L [facility] ALT 10 7 - 45 Units/L [facility] AST 25 10 - 45 Units/L [facility] Blood Venous blood specimen / Unknown 10/10/2024 4:16 AM CDT 10/10/2024 4:27 AM CDT us Abbe Moncada MD LAB BLOOD ORDERABLES Final Res ult [facility] [place] [address] * POCT hCG, urine (10/10/2024 4:14 AM CDT) HCG, ur, POC Negative Negative Lot Number [id number] QC Backgroud Clear Acceptable QC Control Line Acceptable Urine 10/10/2024 4:14 AM CDT Result [facility] Abbe Moncada MD POINT OF CARE TEST ORDERABLES Final Result * ECG 12-LEAD (10/10/2024 4:06 AM CDT) Narrative [facility] - 10/10/2024 4:06 AM CDT Jose C Morales MD 10/10/2024 4:07 AM ECG 12 lead Date/Time: 10/10/2024 4:06 AM Performed by: Jose C Morales MD Authorized by: Abbe Gan MD Rate: ECG rate assessment comment: 55, sinus bradycardia, normal axis, twi and st depression in III and aVF, V3-V4. t wave flattening in V6. Abbe Moncada MD ECG ORDERABLES Final Result [facility] * Neuro CT Outside Consult [...] images may or may not represent the [place] source data set and thus may contain [...] IMAGING STUDY STUDY INITIALLY PERFORMED: 10-09-[address] [facility]. TYPE OF STUDY: Multiple CTA images [...] narrowing or filling defects are identified. The vqjowh-dp-Lyjdie is complete. The anterior and middle cerebral arteries are normal. The vertebral arteries are codominant. The basilar artery is normal. The posterior cerebral arteries are normal. There is no aneurysm or vascular malformation identified. Procedure Note Fausto Nuno MD PhD - 10/10/2024 EXAMINATION: RADIOLOGY CONSULTATION ON OUTSIDE IMAGING STUDY STUDY INITIALLY PERFORMED: 10-09-[address] [facility]. TYPE OF STUDY: Multiple CTA images [...] narrowing or filling defects are identified. The tlnnap-bs-Ctflsp is complete. The anterior and middle cerebral [...] images may or may not represent the [place] source data set and thus may contain [...] images may or may not represent the [place] source data set and thus may contain [...] IMAGING STUDY STUDY INITIALLY PERFORMED: 10-09-[address] [facility]. TYPE OF STUDY: Multiple CTA images [...] narrowing or filling defects are identified. The ykjdwb-gi-Ndzufl is complete. The anterior and middle cerebral arteries are normal. The vertebral arteries are codominant. The basilar artery is normal. The posterior cerebral arteries are normal. There is no aneurysm or vascular malformation identified. Procedure Note Fausto Nuno MD PhD - 10/10/2024 EXAMINATION: RADIOLOGY CONSULTATION ON OUTSIDE IMAGING STUDY STUDY INITIALLY PERFORMED: 10-09-[address] [facility]. TYPE OF STUDY: Multiple CTA images [...] narrowing or filling defects are identified. The ftvcyp-ri-Vdzubv is complete. The anterior and middle cerebral [...] images may or may not represent the [place] source data set and thus may contain [...] Most Recently Relevant to Health Maintenance Insurance [facility] Advance Directives For more information, please contact: [phone] * Full Code (Latest Code Status on File) Date Activated Date Inactivated Comments 09/26/2022 6:05 PM 09/29/2022 3:54 PM * Full Code Date Activated Date Inactivated Comments 09/17/2022 2:18 PM 09/20/2022 3:42 PM Care Teams Waterfront Director Relationship Specialty Start Date End Date Lizandro Perry MD [address] [place] [address] PCP - General Pediatrics 09/24/20
--- OUTSIDE RECORDS SUMMARY | 2024-10-12 14:51 | XMS_ITS | Clinical Summary ---
Author Organization [facility] Address [address] [place] [address] Care Team Providers Care Assembly Press Operator Name Role Phone Unavailable Primary Care Provider Unavailabl e Source Comments [facility],non-owned Affiliates and Associated Physician Practices is amultiple site organization consisting of ambulatory clinics and hospital sitesin [place], [place], [place] and [place]. This disclosure is being madepursuant to the Care Everywhere program and may not contain all information available regarding this patient. Last updated 18.[facility] Allergies Active Allergy Reactions Criticality Noted Date [...] coming in later today for testing at [facility]. Accelerated growth noted 08/15; patient reports passing [...] reduction Assessment & Plan (07/20/2019 6:45 PM CANINE DEPUTY): Patient with complaints today of persistent headache [...] blood pressure or proteinuria. 2. Sent to [facility] triage for evaluation for persistent headache/scotomata, [...] reduction Assessment & Plan (06/22/2019 6:32 PM CANINE DEPUTY): Prior to had serum creatinine greater than [...] on file Legal Sex Female 8:37 AM CANINE DEPUTY Gender Identity Not on file Sexual Orientation Not on file Last Filed Vital Signs Vital Sign Reading Time Taken Comments Blood Pressure 118/76 08/16/2019 11:07 AM CDT Pulse 89 08/16/2019 11:07 AM CDT Temperature 36.6 C (97.9 F) 08/16/2019 11:07 AM CDT Respiratory Rate 16 07/20/2019 7:17 PM CANINE DEPUTY Oxygen Saturation - - Inhaled Oxygen Concentration - - Weight 92.9 kg (204 lb 12.8 oz) 08/03/2019 7:51 AM CDT Height 170.2 cm (5' 7 ) 07/20/2019 4:00 PM CANINE DEPUTY Body Mass Index 32.08 07/20/2019 4:00 PM CANINE DEPUTY Plan of Treatment Health Maintenance Due Date [...] patient's age to complete this topic Insurance [facility] Advance Directives * Full Code (Latest Code Status on File) Date Activated Date Inactivated Comments 07/20/2019 4:06 PM 07/20/2019 9:30 PM
--- OUTSIDE RECORDS SUMMARY | 2024-10-12 14:51 | XMS_ITS | Encounter Summary ---
Author Organization [facility] Address [address] [place] [address] Care Team Providers Care Regulator Pin Inserter Name Role Phone Unavailable Primary Care Provider Unavailabl e Encounter Details Date Type Department Care Team (Late st Contact Info) Description 08/23/2019 Telephone [facility] Women's Health Maternal & Care [address] [place] [address] Sharon Craig Social History Tobacco Use Types Packs/Day Years Used Date Smoking Tobacco: Former Cigarettes Q uit: 01/23/2019 Smokeless Tobacco: Never Alcohol Use Standard Drinks/Week Comments Not Currently 0 (1 standard drink = 0.6 oz pur e alcohol) Comments Yes Sex and Gender Information Value Date Recorded Sex Assigned at Not on file Legal 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 Answer Date of Assessment Author No 07/20/2019 8:23 PM Alexis Aldana RN * Is person blind or have serious difficulty seeing? Answer Date of Assessment Author No 07/20/2019 8:23 PM Alxeis Aldana RN * Does person have serious [...]
--- OUTSIDE RECORDS SUMMARY | 2024-10-12 14:52 | XMS_ITS | CONTINUITY OF CARE DOCUMENT ---
Author Name zarinaharoldo zarinaharoldo Address Unknown Organization [facility] Address [address] [place] [address] Phone [phone] Care Team Providers Care Consumer Educator Name Role Phone Toni Manuel MD Unavailable THEO FUCHS MD Unavailable THEO FUCHS MD Unavailable [phone] PROBLEMS Condition Status Date Provider Notes Tobacco abuse active Toni Manuel MD Asthma active Toni Manuel MD Headache active Toni Manuel MD Chest pain-type to be determined active Valerie Manuel MD Abnormality of urination active Toni souza MD per pt Hypertension active Toni Manuel MD ENCOUNTERS Date Type Provider Location Encounter Diag nosis 7 - 9 In-person encounter Office Visit Toni Manuel MD [facility] Office 0 - 0 In-person encounter Office Visit Toni Manuel MD [place] [facility] HypertensionAbnormality of urinationChest pain-type to be determinedHeadacheAsthmaTobacco abuse VITAL SIGNS Date Observation Value Provider blood pressure, diastolic 86 mm[Hg] Sa teran Zaklea blood pressure, systolic 142 mm[Hg] Wayne barber Zaklea pulse rate 80 /min Joanna Morales oxygen [...] pack/day 0.5 Kel Rosenberg cigarette use yes Kel horowitzmarvin smoking status Current every day smoker M Margot Rosenberg FUNCTIONAL STATUS Date Observation Value Provider periodic limb movement index absent (0) Bee Heaton FAMILY HISTORY Family Member Condition Father Family History of Hy pertension: INSURANCE PROVIDERS Payer name Policy type / Coverage type [place] [employer] party ID SELF PAY TREATMENT PLAN Date Name Performer Cardiology Faxed 1458:Orders: F VC - [id number] ([id number]) F RC - 08237 ([id number]) D LCO - 13820 ([id number]) Toni Manuel MD Cardiology Faxed 1458:Orders: C omplete Echo (CPT-91251) S TR - Routine (CPT-80985) Toni Manuel MD Cardiology Faxed 1458:24 hour [...] Complete Echo Renal Artery Duplex DLCO - 76516 FRC - 03398 FVC - 00056 HISTORY OF PROCEDURES Procedure Date Procedure Name Provider Procedure Notes S tatus SNOMED-CT: 478008529 Smoking Cessation Counseling Toni Manuel MD completed Schedule Followup Toni washington MD in 6 months completed Stress EKG Toni esquivel MD completed EKG Toni esquivel MD completed SNOMED-CT: 280904802137101 Current Medications Documented Toni Manuel MD completed FVC - 02368 Toni esquivel MD completed FRC - 72301 Toni esquivel MD completed DLCO - 79716 Toni esquivel MD completed Schedule Followup Toni washington MD in a couple weeks, after testing is complete completed SNOMED-CT: 65597657 Physical Exam, Performed: Pulse Exam of Foot Toni Manuel MD completed SNOMED-CT: 397463026 Smoking Cessation Counseling Toni Manuel MD completed EKG Toni esquivel MD completed SNOMED-CT: 983115395664039 Current Medications Documented Toni Manuel MD completed
--- OUTSIDE RECORDS SUMMARY | 2024-10-12 14:52 | XMS_ITS | Encounter Summary ---
Author Organization [facility] Address [address] [place] [address] Care Team Providers Care Strategic Planning Director Name Role Phone Parveen Crews MD Primary Care Provider Parveen Crews MD Primary Care Provider Lizandro Perry MD Primary Care Provider [phone] Encounter Details Date Type Department Care Team (Late st Contact Info) Description 02/10/2017 Orders Only [facility] Health Information Management [address] [place] [address] Scanning, Provider Social History Tobacco Use Types [...] on filedocumented in this encounter Care Teams Strategic Planning Director Relationship Specialty Start Date End Date Parveen Crews MD [address] [address] PCP - General Family Practice 02/11/17 09/23/20 Parveen Crews MD [address] [place] [address] PCP - General Family Practice 01/23/17 02/10/17 Lizandro Perry MD [address] [place] [address] PCP - General Pediatrics 09/24/20 documented as of this encounter
--- OUTSIDE RECORDS SUMMARY | 2024-10-12 14:52 | XMS_ITS | Encounter Summary ---
Author Organization [facility] Address [address] [place] [address] Phone Care Team Providers Care Assistant Program Manager Name Role Phone Lizandro Perry MD Primary Care Provider [phone] Encounter Details Date Type Department Care Team (Late st Contact Info) Description 10/10/2024 Ophth Exam [facility] Ophthalmology [address] [place] [phone] Ky Townsend MD [address] [place] [address] Social History Tobacco Use Types [...] How often do you attend chur or adventist services? Never 09/18/2022 Do you belong to any clubs o r organizations such as adventism groups, unions, fraternal or athletic groups, or [...] place to sleep or slept in a correction (including now)? No 09/18/2022 Housing Stability Vital [...] no hemorrhage Normal, no hemorrhage Care Teams Assistant Program Manager Relationship Specialty Start Date End Date Lizandro Perry MD [address] [place] [address] PCP - General Pediatrics 09/24/20 documented as of this encounter
[2024-10-12 14:58] LABS: BEDSIDEPREGUCG Negative (Negative)
[2024-10-12 15:04] LABS: Alanine Aminotransferase 17 U/L (6-35); Albumin Level 4.5 g/dL (3.5-5.1); Alkaline Phosphatase 61 U/L (38-126); Anion Gap 9 mmol/L (4-12); Aspartate Amino Transferase 27 U/L (14-36); Bilirubin,Total 0.4 mg/dL (0.2-1.3); Blood Urea Nitrogen 21 mg/dL (7-17); Calcium 9.1 mg/dL (8.4-10.2); Carbon Dioxide 26 mmol/L (22-30); Chloride 106 mmol/L (98-107); Estimated CRCL calculation 60 ml/min; Estimated Glomerular Filt Rate 56; Glucose 87 mg/dL (65-110); Sodium 141 mmol/L (137-145)
[2024-10-12 15:17] LABS: Troponin I < 0.012 ng/mL (0.000-0.034)
[2024-10-12] MEDS: ACETAMINOPHEN 325 MG TABLET 650 MG PO (16:09)
[2024-10-12] MEDS: hydrALAZINE HCL 20 MG/ML VIAL 10 MG IV PUSH (17:04)
--- NOTE | 2024-10-12 18:23 | PC.NURSE ---
MD aware of pt VS for d/c. Pt leaves in NAD.
== END 2024-10-12 18:25 | disposition home or self-care (01) ==
PROVIDERS: Emergency Provider Emergency Medicine; PCP Nurse Practitioner Family
DX: I10 Essential (primary) hypertension (principal); F17.290 Nicotine dependence, other tobacco product, uncomplicated; F17.210 Nicotine dependence, cigarettes, uncomplicated; Z79.899 Other long term (current) drug therapy; R00.1 Bradycardia, unspecified; R94.31 Abnormal electrocardiogram [ECG] [EKG]
CPT/HCPCS: 36415; 71046; 80053; 81025; 84484; 85025; 93005; 96374; 99284; A9270; J0360